=== PATIENT | male | born 1985 | race American Indian/Alaskan Native ===

== ENCOUNTER 2017-04-19 14:24 | Emergency (ER) | payer OTHER ==
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
[2017-04-19 15:33] LABS: URINE BILIRUBIN NEGATIVE (NEGATIVE); URINE BLOOD TRACE-INTACT (NEGATIVE); URINE GLUCOSE (UA) NEGATIVE (NEGATIVE); URINE KETONE NEGATIVE (NEGATIVE); URINE LEUKOCYTE ESTERASE NEGATIVE Leu/uL (NEGATIVE); URINE PROTEIN NEGATIVE mg/dL (<30 mg/dL); URINE UROBILINOGEN 0.2 E.U./dL (<1 E.U./dL)
[2017-04-19 15:34] LABS: URINE APPEARANCE CLEAR (CLEAR); URINE COLOR YELLOW (YELLOW)
--- NOTE | 2017-04-19 15:37 | RAD ---
HISTORY: psych COMPARISON: 01/11/2016 FINDINGS: LUNGS: No active pulmonary disease. PLEURA: No significant pleural effusion identified, no pneumothorax apparent. CARDIOVASCULAR: Normal. OSSEOUS STRUCTURES: No significant abnormalities. VISUALIZED UPPER ABDOMEN: Normal. OTHER FINDINGS: None. IMPRESSION: No active disease.
[2017-04-19 15:43] LABS: ADD MANUAL DIFF? NO
[2017-04-19 15:48] LABS: BASO # 0.03 K/mm3 (0.0-2.0); BASO % 0.3 % (0.0-3.0); EOS # 0.2 (0.0-0.7); EOS % 1.9 % (1.5-5.0); GRAN # 6.99 (1.4-6.5); GRAN % 67.2 % (50.0-68.0); HEMATOCRIT 40.3 % (42.0-52.0); LYMPH # 2.6 (1.2-3.4); LYMPH % 25.3 % (22.0-35.0); MEAN CORPUSCULAR HEMOGLOBIN 28.5 pg (25.0-35.0); MEAN PLATELET VOLUME 10.3 fl (7.0-11.0); MONO # 0.6 (0.1-0.6); MONO % 5.3 % (1.0-6.0); PLATELET COUNT 191 10^3/uL (120.0-450.0); RED CELL DISTRIBUTION WIDTH 14.8 % (11.5-14.5); WHITE BLOOD COUNT 10.4 10^3/ul (4.5-11.0)
[2017-04-19 15:51] LABS: URINE RBC 0 - 2 /hpf (0-2); URINE WBC NEGATIVE /hpf (0-6)
[2017-04-19 15:57] LABS: ALB/GLOB RATIO 1.5 (1.1-1.8); ALKALINE PHOSPHATASE 114 U/L (38-133); ALT/SGPT 40 U/L (7-56); AST/SGOT 24 U/L (15-59); BILIRUBIN,TOTAL 0.3 mg/dL (0.2-1.3); BLOOD UREA NITROGEN 16 mg/dL (7-21); CARBON DIOXIDE 24 mmol/L (21-33); CHLORIDE 105 mmol/L (98-107); GFR AFRICAN-AMERICAN > 60; GLUCOSE,RANDOM 102 mg/dL (70-110); LIPASE 50 U/L (23-300); POTASSIUM 3.9 mmol/L (3.6-5.0); SODIUM 140 mmol/L (132-148)
[2017-04-19 19:09] VITALS: TEMP 98
[2017-04-19 19:10] VITALS: O2SAT 98
[2017-04-19 22:12] VITALS: BP 120/82; PULSE 82; RESP 16
--- NOTE | 2017-04-21 01:26 | CARD ---
APPROVED REPORT EKG Measurement Heart [id number] <Conclusion> Normal sinus rhythm Normal ECG
== END 2017-04-19 22:12 | disposition home or self-care (01) ==
LOC: ED 14:24
DX: F20.9 Schizophrenia, unspecified (principal)

== ENCOUNTER 2017-06-06 19:12 | Inpatient (IN) | payer MEDICAID, OTHER ==
[2017-06-06 20:03] VITALS: BMI 25.0
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
[2017-06-06 20:55] LABS: URINE BILIRUBIN NEGATIVE (NEGATIVE); URINE BLOOD TRACE-INTACT (NEGATIVE); URINE GLUCOSE (UA) NEGATIVE (NEGATIVE); URINE LEUKOCYTE ESTERASE NEGATIVE Leu/uL (NEGATIVE); URINE NITRATE NEGATIVE (NEGATIVE); URINE PROTEIN NEGATIVE mg/dL (<30 mg/dL); URINE UROBILINOGEN 0.2 E.U./dL (<1 E.U./dL)
[2017-06-06 21:00] LABS: URINE APPEARANCE CLEAR (CLEAR); URINE COLOR YELLOW (YELLOW)
[2017-06-06 21:01] LABS: ALB/GLOB RATIO 1.6 (1.1-1.8); ALBUMIN 4.4 g/dL (3.0-4.8); ALT/SGPT 36 U/L (7-56); AST/SGOT 34 U/L (15-59); BLOOD UREA NITROGEN 11 mg/dL (7-21); CALCIUM 9.3 mg/dL (8.4-10.5); GFR AFRICAN-AMERICAN > 60; GFR NON-AFRICAN AMERICAN > 60
[2017-06-06 21:02] LABS: BASO # 0.03 K/mm3 (0.0-2.0); BASO % 0.3 % (0.0-3.0); EOS # 0.5 (0.0-0.7); GRAN # 6.59 (1.4-6.5); GRAN % 57.9 % (50.0-68.0); HEMOGLOBIN 15.2 g/dL (14.0-18.0); LYMPH # 3.8 (1.2-3.4); LYMPH % 33.1 % (22.0-35.0); MEAN CELL VOLUME 83.3 fl (80.0-105.0); MEAN CORPUSCULAR HEMOGLOBIN 29.1 pg (25.0-35.0); MEAN CORPUSCULAR HGB CONC 34.9 g/dl (31.0-37.0); MEAN PLATELET VOLUME 10.6 fl (7.0-11.0); MONO # 0.5 (0.1-0.6); MONO % 4.7 % (1.0-6.0); PLATELET COUNT 200 10^3/uL (120.0-450.0); RBC 5.22 10^6/uL (3.5-6.1); RED CELL DISTRIBUTION WIDTH 14.2 % (11.5-14.5); WHITE BLOOD COUNT 11.4 10^3/ul (4.5-11.0)
[2017-06-06 21:04] LABS: ACETAMINOPHEN < 10.0 ug/ml (10.0-20.0); SALICYLATE < 1 mg/dL (2.0-20.0)
[2017-06-06 21:05] LABS: URINE EPITHELIAL CELLS 0 - 2 /hpf (0-5); URINE WBC 0 - 2 /hpf (0-6)
[2017-06-06 21:13] LABS: BARBITURATES, UR NEGATIVE (NEGATIVE); BENZODIAZEPINES, UR NEGATIVE (NEGATIVE); OPIATES, UR NEGATIVE (NEGATIVE); PHENCYCLIDINE, UR NEGATIVE (NEGATIVE)
[2017-06-06 21:38] VITALS: O2SAT 98
--- NOTE | 2017-06-07 04:15 | PCM.BM ---
<Arnold Barger O - Last Filed: 06/07/17 04:12> Treatment Plan Problems - Problems identified on initial assessmt delusional Date Initiated: 06/06/17 Time Initiated: 20:35 Assessment reference: NA Status: Active substance abuse Date Initiated: 06/06/17 Time Initiated: 20:35 Assessment reference: NA Status: Active Treatment assets and liabiliti Patient Assests: ADL independent, physically healthy Patient Liabilities: substance abuse - Milieu Protocol Maintain good personal hygiene: daily Encourage regular showers, daily Remind patient to perform daily oral care, daily Assist patient to perform ADL's Maintain personal safety: daily Educate patient to report safety concerns to staff, daily Monitor environment for contraband/sharps Medication safety: Monitor for expected outcome, potential side effects: daily, Assess barriers to learning: daily, Assess readiness for medication education: daily Family Contact Family involvement: Patient does not wish Family/SO involvement Family contact: Patient agrees to contact - Goals for Treatment Patient goals for treatment: To get better Discharge/Continuing Care - Education Needs Education Needs: Family Medication, Family Diagnosis/Disease Process, Family Coping Skills, Family Anger Management skills, Family Placement options, Family Community resources, Family Activities of Daily Living, Family Pain, Family Nutrition, Family Uses of Medical Equipment, Family Health Practices/Safety, Family Personal Hygiene/Grooming, Family Aftercare Safety Plan, Family Other - Discharge Discharge Criteria: Tolerates medication w/o severe side effects, Free of Suicidal thoughts, Free of paranoid thoughts, Normal sleep pattern <Jose A Sotelo H - Last Filed: 06/09/17 11:23> - Diagnosis (1) Schizophrenia Status: Acute Interventions: Pharmocotherapy 06/09/17 11:32 <Christiane Amni Y - Last Filed: 06/09/17 17:21>
[2017-06-07 08:53] LABS: HDL CHOLESTEROL 36 mg/dL (29-60)
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
[2017-06-07 09:04] LABS: LDL CHOLESTEROL 89 mg/dL (0-129)
--- NOTE | 2017-06-07 10:19 | RAD ---
HISTORY: pysch COMPARISON: 04/19/2017. FINDINGS: LUNGS: No active pulmonary disease. PLEURA: No significant pleural effusion identified, no pneumothorax apparent. CARDIOVASCULAR: Normal. OSSEOUS STRUCTURES: No significant abnormalities. VISUALIZED UPPER ABDOMEN: Normal. OTHER FINDINGS: None. IMPRESSION: No active disease. No significant interval change compared to the prior examination(s).
--- NOTE | 2017-06-07 18:54 | CARD ---
APPROVED REPORT EKG Measurement Heart [id number] <Conclusion> Normal sinus rhythm Normal ECG
[2017-06-07] MEDS: Divalproex 500 mg DR(BID formulation) PO SCH ×2 (19:22→19:55)
[2017-06-08 08:09] VITALS: RESP 20
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
[2017-06-08] MEDS: Divalproex 500 mg DR(BID formulation) PO SCH ×2 (09:56→16:00)
[2017-06-09] MEDS: Divalproex 500 mg DR(BID formulation) PO SCH ×2 (09:07→17:49)
--- NOTE | 2017-06-09 14:13 | PCM.PYCHPN ---
Psychiatric Progress Note - Psychiatric Progress Note Patient seen today, length of contact: 25 min Problems Identified/Issues Discussed: Patient has been seen and examined. He is oriented to time place, location, and circumstance. He denies any suicidal or homicidal ideation. Patient stated he doesn't know why he passed out. He denied any using any illicit drugs. Diagnostic Results: Schizophrenia by Hx Medication Change: No Medical Record Reviewed: Yes Mental Status Examination - Cognitive Function Orientation: Person, Place Memory: Intact Attention: WNL Concentration: Poor Association: Loose Fund of Knowledge: Poor Decription of patient's judgement and insights: Poor insight and judgement. - Mood Mood: Neutral ("all right") - Affect Affect: Other (Oddly related, brittle) - Speech Speech: Appropriate - Formal Thought Process Formal Thought Process: Paranoia - Suicidal Ideation Suicidal Ideation: No - Homicidal Ideation Homicidal Ideation: No Goal/Treatment Plan - Goal/Treatment Plan Need for Continued Stay: Remain at risks for inpatient hospitalization Progress Toward Problem(s) and Goals/Treatment Plan: Continue with current management.
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
[2017-06-10] MEDS: Divalproex 500 mg DR(BID formulation) PO SCH ×2 (08:50→17:45)
[2017-06-10] MEDS ORDERED: Bacitracin/Neomycin/Polymyxin Oint(30GM) TOP PRN (15:32)
[2017-06-11 06:30] VITALS: BP 112/70; PULSE 87; TEMP 97.6
--- NOTE | 2017-06-11 07:51 | OP ---
Covering for Dr. Fernandez. SUBJECTIVE: The patient is a 32-year-old -[place] male who exhibits some mood lability, some impaired judgement. He denies suicidal or homicidal ideation. Auditory or visual hallucinations. He has been maintained psychotropically on Ativan 1 mg t.i.d., Depakote 500 mg b.i.d., Risperdal 2 mg a.m. and at bedtime, and Sonata 10 mg at bedtime p.r.n. PHYSICAL EXAMINATION: VITAL SIGNS: Blood pressure 130/73, pulse 97, temperature 98.4 and respiratory rate 20. Jose A Sotelo MD/ PhD
[2017-06-11] MEDS: Divalproex 500 mg DR(BID formulation) PO SCH ×2 (09:02→17:34)
[2017-06-11] MEDS ORDERED: INVEGA SUSTENNA 156 MG IM STA (17:29)
--- NOTE | 2017-06-12 07:51 | PN ---
SUBJECTIVE: The patient is a 32-year-old male with a somewhat odd affect, mood lability, lack of insight. The patient has been anxious to leave. He stated initial agitation has subsided. His mother indicates that she has no concerns about he is being discharged, feels he has improved and would be willing to send them back home if he receives a long acting injectable antipsychotic medication. The patient is not homicidal, suicidal or psychotic. Jose A Sotelo MD/ PhD
== END 2017-06-11 16:30 | disposition home or self-care (01) | DRG 430 ==
LOC: ED 19:12 → ERH 06-07 00:12 → PSYC 06-07 00:53
PROVIDERS: ADMIT Psychologist; ATTEND Psychiatry & Neurology Psychiatry
DX: F20.9 Schizophrenia, unspecified (principal); F17.210 Nicotine dependence, cigarettes, uncomplicated; Z87.828 Personal history of other (healed) physical injury and trauma

== ENCOUNTER 2017-06-12 16:00 | Emergency (ER) | payer MEDICAID, OTHER ==
[2017-06-12 16:11] VITALS: TEMP 99
[2017-06-12 16:27] VITALS: BMI 24.3
[2017-06-12 17:49] LABS: BASO # 0.01 K/mm3 (0.0-2.0); BASO % 0.1 % (0.0-3.0); EOS # 0.1 (0.0-0.7); EOS % 0.7 % (1.5-5.0); GRAN # 8.32 (1.4-6.5); GRAN % 72.6 % (50.0-68.0); HEMOGLOBIN 15.9 g/dL (14.0-18.0); LYMPH # 2.1 (1.2-3.4); LYMPH % 18.2 % (22.0-35.0); MEAN CELL VOLUME 84.4 fl (80.0-105.0); MEAN CORPUSCULAR HEMOGLOBIN 28.6 pg (25.0-35.0); MEAN CORPUSCULAR HGB CONC 33.9 g/dl (31.0-37.0); MEAN PLATELET VOLUME 10.8 fl (7.0-11.0); MONO % 8.4 % (1.0-6.0); PLATELET COUNT 165 10^3/uL (120.0-450.0); RBC 5.56 10^6/uL (3.5-6.1); RED CELL DISTRIBUTION WIDTH 14.7 % (11.5-14.5); WHITE BLOOD COUNT 11.5 10^3/ul (4.5-11.0)
[2017-06-12 17:57] LABS: ALB/GLOB RATIO 1.6 (1.1-1.8); ALBUMIN 4.9 g/dL (3.0-4.8); ALT/SGPT 43 U/L (7-56); AST/SGOT 33 U/L (15-59); BLOOD UREA NITROGEN 8 mg/dL (7-21); CALCIUM 9.8 mg/dL (8.4-10.5); GFR AFRICAN-AMERICAN > 60; GFR NON-AFRICAN AMERICAN > 60
[2017-06-12 17:58] LABS: SALICYLATE < 1 mg/dL (2.0-20.0)
[2017-06-12 18:02] LABS: ACETAMINOPHEN < 10.0 ug/ml (10.0-20.0)
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
--- NOTE | 2017-06-12 19:27 | ED PDOC ---
Physical Exam Vital Signs Temp Pulse Resp BP Pulse Ox 06/12/17 18:00 101 H 18 126/97 H 99 06/12/17 16:10 99 F 100 H 20 128/83 97 Medical Decision Making ED Course and Treatment: 06/12/17 19:00 Patient signed out to me by Dr. Pacheco. Pending [facility] screening. 06/12/17 22:15 Pt seen and evaluated by TANIA Vazquez, who discussed case with Dr. Zuñiga, psychiatrist quality control engineering technician. Pt was cleared for d/c home in custody of his mother, who agrees with plan and will assume responsibility of pt, who will follow up with his psychiatrist this week. - Lab Interpretations Lab Results: 06/12/17 17:06 06/12/17 17:06 Lab Results 06/12/17 21:31: Urine Color Yellow, Urine Appearance Clear, Urine pH 6.0, Ur Specific [place] 1.015, Urine Protein Negative, Urine Glucose (UA) Negative, Urine Ketones Negative, Urine Blood Trace-lysed H, Urine Nitrate Negative, Urine Bilirubin Negative, Urine Urobilinogen 0.2, Ur Leukocyte Esterase Negative , Urine RBC 0 - 2, Urine WBC 1 - 3, Ur Epithelial Cells None, Urine Bacteria Many, Urine Other Mucus 06/12/17 17:06: Alcohol, Quantitative 13 H 06/12/17 17:06: Salicylates < 1 L, Acetaminophen < 10.0 L 06/12/17 17:06: Sodium 141, Potassium 3.9, Chloride 99, Carbon Dioxide 25, Anion Gap 21 H, BUN 8, Creatinine 1.0, Est GFR ( Amer) > 60, Est GFR (Non -Af Amer) > 60, Random Glucose 97, Calcium 9.8, Total Bilirubin 0.4, AST 33, ALT 43, Alkaline Phosphatase 127, Total Protein 7.9, Albumin 4.9 H, Globulin 3.0 , Albumin/Globulin Ratio 1.6 06/12/17 17:06: WBC 11.5 H, RBC 5.56, Hgb 15.9, Hct 46.9, MCV 84.4, MCH 28.6, MCHC 33.9, RDW 14.7 H, Plt Count 165, MPV 10.8, Gran % 72.6 H, Lymph % (Auto) 18.2 L, [place] % (Auto) 8.4 H, Eos % (Auto) 0.7 L, Baso % (Auto) 0.1, Gran # 8.32 H, Lymph # 2.1, [place] # 1.0 H, Eos # 0.1, Baso # 0.01 - Scribe Statement The provider has reviewed the documentation as recorded by the Scribe Leidy Garcia Provider Scribe Attestation: All medical record entries made by the Scribe were at my direction and personally dictated by me. I have reviewed the chart and agree that the record accurately reflects my personal performance of the history, physical exam, medical decision making, and the department course for this patient. I have also personally directed, reviewed, and agree with the discharge instructions and disposition. Disposition/Present on Arrival - Present on Arrival Any Indicators Present on Arrival: No History of DVT/PE: No History of Uncontrolled Diabetes: No Urinary Catheter: No History of Decub. Ulcer: No History Surgical Site Infection Following: None - Disposition Have Diagnosis and Disposition been Completed?: Yes Diagnosis: Schizophrenia Disposition: HOME/ ROUTINE Disposition Time: 22:32 Patient Plan: Discharge Condition: STABLE Additional Instructions: Follow up with your psychiatrist this week Forms: [employer] (Tajik)
[2017-06-12 19:32] VITALS: BP 126/97; PULSE 101; RESP 18; O2SAT 99
[2017-06-12 21:54] LABS: URINE BILIRUBIN NEGATIVE (NEGATIVE); URINE BLOOD TRACE-LYSED (NEGATIVE); URINE GLUCOSE (UA) NEGATIVE (NEGATIVE); URINE LEUKOCYTE ESTERASE NEGATIVE Leu/uL (NEGATIVE); URINE NITRATE NEGATIVE (NEGATIVE); URINE PROTEIN NEGATIVE mg/dL (<30 mg/dL); URINE UROBILINOGEN 0.2 E.U./dL (<1 E.U./dL)
[2017-06-12 22:05] LABS: URINE APPEARANCE CLEAR (CLEAR); URINE COLOR YELLOW (YELLOW)
[2017-06-12 22:08] LABS: BARBITURATES, UR NEGATIVE (NEGATIVE); BENZODIAZEPINES, UR NEGATIVE (NEGATIVE); OPIATES, UR NEGATIVE (NEGATIVE); PHENCYCLIDINE, UR NEGATIVE (NEGATIVE); URINE RBC 0 - 2 /hpf (0-2)
[2017-06-12 22:09] LABS: URINE BACTERIA MANY (NEG)
== END 2017-06-12 22:30 | disposition home or self-care (01) ==
LOC: ED 16:00
DX: F20.9 Schizophrenia, unspecified (principal)

== ENCOUNTER 2018-04-05 23:44 | Inpatient (IN) | payer MEDICAID, OTHER ==
[2018-04-05 23:45] VITALS: BMI 25.0
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
[2018-04-06 00:47] LABS: BASO # 0.02 K/mm3 (0.0-2.0); BASO % 0.2 % (0.0-3.0); EOS # 0.1 (0.0-0.7); EOS % 0.6 % (1.5-5.0); GRAN # 9.39 (1.4-6.5); GRAN % 78.8 % (50.0-68.0); HEMOGLOBIN 14.6 g/dL (14.0-18.0); LYMPH # 1.8 (1.2-3.4); MEAN CELL VOLUME 84.4 fl (80.0-105.0); MEAN CORPUSCULAR HEMOGLOBIN 29.1 pg (25.0-35.0); MEAN CORPUSCULAR HGB CONC 34.5 g/dl (31.0-37.0); MEAN PLATELET VOLUME 10.5 fl (7.0-11.0); MONO # 0.6 (0.1-0.6); MONO % 5.4 % (1.0-6.0); RBC 5.01 10^6/uL (3.5-6.1); WHITE BLOOD COUNT 11.9 10^3/ul (4.5-11.0)
[2018-04-06 01:04] LABS: ALB/GLOB RATIO 1.5 (1.1-1.8); ALBUMIN 4.3 g/dL (3.0-4.8); ALT/SGPT 39 U/L (7-56); AST/SGOT 39 U/L (17-59); BLOOD UREA NITROGEN 17 mg/dL (7-21); CALCIUM 9.5 mg/dL (8.4-10.5); GFR AFRICAN-AMERICAN > 60; GFR NON-AFRICAN AMERICAN > 60
[2018-04-06 01:39] LABS: ACETAMINOPHEN < 10.0 ug/ml (10.0-20.0); SALICYLATE < 1 mg/dL (2.0-20.0)
[2018-04-06 02:08] LABS: URINE BILIRUBIN NEGATIVE (NEGATIVE); URINE BLOOD NEGATIVE (NEGATIVE); URINE GLUCOSE (UA) NEGATIVE (NEGATIVE); URINE LEUKOCYTE ESTERASE NEGATIVE Leu/uL (NEGATIVE); URINE PROTEIN NEGATIVE mg/dL (<30 mg/dL); URINE UROBILINOGEN 0.2 E.U./dL (<1 E.U./dL)
[2018-04-06 02:13] LABS: URINE APPEARANCE CLEAR (CLEAR); URINE COLOR YELLOW (YELLOW)
[2018-04-06 02:31] LABS: BARBITURATES, UR NEGATIVE (NEGATIVE); BENZODIAZEPINES, UR NEGATIVE (NEGATIVE); OPIATES, UR NEGATIVE (NEGATIVE); PHENCYCLIDINE, UR POSITIVE (NEGATIVE)
[2018-04-06] MEDS ORDERED: Alum-Mag Hydrox-Simethicone Susp (30 mL) PO PRN (02:56)
[2018-04-06] MEDS ORDERED: Magnesium Hydroxide Susp 30 ml UD PO PRN (02:56)
[2018-04-06 03:30] VITALS: O2SAT 99
--- NOTE | 2018-04-06 04:58 | PCM.BM ---
Treatment assets and liabiliti Patient Assests: ADL independent, physically healthy
--- NOTE | 2018-04-06 05:08 | PCM.BM ---
<Neda Contreras - Last Filed: 04/06/18 05:07> Treatment Plan Problems - Problems identified on initial assessmt DELUSIONS Date Initiated: 04/06/18 Time Initiated: 05:00 Status: Active Priority: 1 MEDICATION NON ADHERENCE Date Initiated: 04/06/18 Time Initiated: 05:00 Assessment reference: NA Status: Active Priority: 2 INEFFECTIVE COPING Date Initiated: 04/06/18 Time Initiated: 05:00 Assessment reference: NA Status: Active Priority: 3 Treatment assets and liabiliti Patient Assests: cooperative, self-reliant, ADL independent, physically healthy , negotiates basic needs Patient Liabilities: financial problems, relationship conflicts, substance abuse - Milieu Protocol Maintain good personal hygiene: every other day Encourage regular showers, every shift Remind patient to perform daily oral care, every shift Assist patient to perform ADL's Maintain personal safety: every other day Educate patient to report safety concerns to staff, every other day Monitor environment for contraband/sharps Medication safety: Monitor for expected outcome, potential side effects: every other day, Assess barriers to learning: every other day, Assess readiness for medication education: every other day Family Contact Family contact: Patient agrees to contact Discharge/Continuing Care - Education Needs Education Needs: Patient Medication, Patient Diagnosis/Disease Process, Patient Coping Skills, Patient Uses of Medical Equipment, Patient Health Practices/ Safety, Patient Aftercare Safety Plan - Discharge Discharge Criteria: Tolerates medication w/o severe side effects, Free of paranoid thoughts, Free of agitation, Normal sleep pattern, Ability to care for self <Javy Uribe - Last Filed: 04/06/18 10:07> Treatment Plan Problems - Problems identified on initial assessmt Altered Thought Process Date Initiated: 04/06/18 Time Initiated: 10:08 Assessment reference: NA Status: Active Priority: 2 <Jessica Fernandez - Last Filed: 04/06/18 16:12> - Diagnosis (1) Polysubstance abuse Status: Acute Interventions: 04/06/18 08:46 Monitoring withdrawal symptoms Medical detoxification Pharmacotherapy for alcohol/benzos/opioid dependence Maintaining sobriety Relapse prevention Possible rehabilitation Motivational interviewing 12-step programs: AA meetings (2) Schizophrenia Status: Acute Interventions: 04/06/18 08:46 Psychoeducation/psychotherapy Psychopharmacology/adjustment of medications as needed/ monitoring possible side effects Evaluate pt on daily basis Compliance with medications and follow up appointments Long acting medication if pt is noncompliant with pill form Suicide and homicide risk assessment and prevention, coping strategies, safety plan Relapse prevention Reduction of symptoms Improve functional status Possible assertive community treatment Cognitive behavioral therapy Family involvement Possible social skill training as outpatient <Christiane Amin - Last Filed: 04/06/18 17:14> Family Contact Family involvement: Famliy/SO not involved Family contact: Patient declines to allow family contact at present
[2018-04-06 06:49] LABS: GLUCOSE,FASTING 93 mg/dL (65-110); HDL CHOLESTEROL 34 mg/dL (29-60)
[2018-04-06 06:59] LABS: LDL CHOLESTEROL 79 mg/dL (0-129)
[2018-04-06] MEDS ORDERED: Bacitracin 500 Units/gm Oint Foilpak UD ONE (10:33)
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
[2018-04-07 07:01] VITALS: BP 100/64; PULSE 59; RESP 20; TEMP 97.5
== END 2018-04-07 15:52 | disposition left against medical advice (07) | DRG 430 ==
LOC: ED 23:44 → ERH 04-06 01:58 → PSYC 04-06 03:17
PROVIDERS: ADMIT Psychiatry & Neurology Psychiatry; ATTEND Psychiatry & Neurology Psychiatry
DX: F20.9 Schizophrenia, unspecified (principal); F16.10 Hallucinogen abuse, uncomplicated; F12.10 Cannabis abuse, uncomplicated

== ENCOUNTER 2018-08-22 18:18 | Emergency (ER) | payer MEDICAID, OTHER ==
[2018-08-22 18:19] VITALS: BMI 25.0
[2018-08-22 18:42] VITALS: RESP 18; TEMP 98.1
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
[2018-08-22 19:06] LABS: BASO # 0.06 K/mm3 (0.0-2.0); BASO % 0.4 % (0.0-3.0); EOS # 0.3 (0.0-0.7); EOS % 2.2 % (1.5-5.0); GRAN # 8.49 (1.4-6.5); HEMOGLOBIN 15.3 g/dL (14.0-18.0); LYMPH # 4.1 (1.2-3.4); LYMPH % 29.5 % (22.0-35.0); MEAN CELL VOLUME 85.7 fl (80.0-105.0); MEAN CORPUSCULAR HEMOGLOBIN 29.3 pg (25.0-35.0); MEAN CORPUSCULAR HGB CONC 34.2 g/dl (31.0-37.0); MEAN PLATELET VOLUME 10.9 fl (7.0-11.0); MONO # 0.8 (0.1-0.6); MONO % 5.9 % (1.0-6.0); RBC 5.23 10^6/uL (3.5-6.1); RED CELL DISTRIBUTION WIDTH 13.8 % (11.5-14.5); WHITE BLOOD COUNT 13.7 10^3/uL (4.5-11.0)
[2018-08-22 19:25] LABS: ACETAMINOPHEN < 10.0 ug/ml (10.0-20.0); SALICYLATE < 1 mg/dL (2.0-20.0)
[2018-08-22 19:25] LABS: ALB/GLOB RATIO 1.3 (1.1-1.8); ALBUMIN 4.4 g/dL (3.0-4.8); ALT/SGPT 32 U/L (7-56); AST/SGOT 27 U/L (17-59); BLOOD UREA NITROGEN 14 mg/dL (7-21); CALCIUM 9.5 mg/dL (8.4-10.5); GFR NON-AFRICAN AMERICAN > 60
[2018-08-22 19:31] LABS: URINE APPEARANCE CLEAR (CLEAR); URINE BILIRUBIN NEGATIVE (NEGATIVE); URINE BLOOD TRACE-INTACT (NEGATIVE); URINE COLOR YELLOW (YELLOW); URINE GLUCOSE (UA) NEGATIVE (NEGATIVE); URINE LEUKOCYTE ESTERASE NEGATIVE Leu/uL (NEGATIVE); URINE PROTEIN NEGATIVE mg/dL (<30 mg/dL); URINE UROBILINOGEN 0.2 E.U./dL (<1 E.U./dL)
[2018-08-22 19:35] LABS: URINE BACTERIA NEG (NEG); URINE HYALINE CAST 0 - 2 /hpf; URINE WBC 0 - 2 /hpf (0-6)
[2018-08-22 19:50] LABS: BARBITURATES, UR NEGATIVE (NEGATIVE); BENZODIAZEPINES, UR NEGATIVE (NEGATIVE); OPIATES, UR NEGATIVE (NEGATIVE); PHENCYCLIDINE, UR POSITIVE (NEGATIVE)
[2018-08-22 21:04] VITALS: BP 112/71; PULSE 76; O2SAT 100
--- NOTE | 2018-08-23 10:04 | RAD ---
Date of service: 08/22/2018 HISTORY: drug use COMPARISON: 06/06/2017. FINDINGS: LUNGS: The lungs are well inflated and clear. PLEURA: No pleural effusions or pneumothorax. CARDIOVASCULAR: The heart is normal in size. No aortic atherosclerotic calcification present. OSSEOUS STRUCTURES: Within normal limits for the patient's age. VISUALIZED UPPER ABDOMEN: Normal. OTHER FINDINGS: None. IMPRESSION: No active pulmonary disease.
--- NOTE | 2018-08-24 09:54 | CARD ---
APPROVED REPORT Date of service: 08/22/2018 EKG Measurement Heart [id number] <Conclusion> Normal sinus rhythm Normal ECG No change
== END 2018-08-22 20:47 | disposition left against medical advice (07) ==
LOC: ED 18:18
DX: F19.10 Other psychoactive substance abuse, uncomplicated (principal); F20.9 Schizophrenia, unspecified

== ENCOUNTER 2018-08-23 16:27 | Inpatient (IN) | payer OTHER ==
[2018-08-23 16:28] VITALS: BMI 25.0
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
[2018-08-23 16:55] LABS: BASO # 0.04 K/mm3 (0.0-2.0); BASO % 0.3 % (0.0-3.0); EOS # 0.3 (0.0-0.7); EOS % 1.6 % (1.5-5.0); GRAN # 11.49 (1.4-6.5); GRAN % 72.1 % (50.0-68.0); HEMOGLOBIN 16.1 g/dL (14.0-18.0); LYMPH # 3.3 (1.2-3.4); LYMPH % 20.8 % (22.0-35.0); MEAN CELL VOLUME 86.1 fl (80.0-105.0); MEAN CORPUSCULAR HEMOGLOBIN 29.4 pg (25.0-35.0); MEAN CORPUSCULAR HGB CONC 34.2 g/dl (31.0-37.0); MEAN PLATELET VOLUME 10.6 fl (7.0-11.0); MONO # 0.8 (0.1-0.6); MONO % 5.2 % (1.0-6.0); RBC 5.47 10^6/uL (3.5-6.1); RED CELL DISTRIBUTION WIDTH 13.8 % (11.5-14.5); WHITE BLOOD COUNT 15.9 10^3/uL (4.5-11.0)
[2018-08-23 17:12] LABS: ALB/GLOB RATIO 1.5 (1.1-1.8); ALBUMIN 5.1 g/dL (3.0-4.8); ALT/SGPT 27 U/L (7-56); AST/SGOT 34 U/L (17-59); BLOOD UREA NITROGEN 15 mg/dL (7-21); CALCIUM 9.9 mg/dL (8.4-10.5); GFR NON-AFRICAN AMERICAN > 60
[2018-08-23] MEDS ORDERED: Sodium Chloride 0.9% 1,000 ML IV STA (17:16)
[2018-08-23] MEDS ORDERED: Sodium Chloride 0.9% 500 ML IV STA (17:17)
[2018-08-23 18:45] LABS: PH,URINE 6.5 (4.7-8.0); URINE BILIRUBIN NEGATIVE (NEGATIVE); URINE BLOOD NEGATIVE (NEGATIVE); URINE GLUCOSE (UA) NEGATIVE (NEGATIVE); URINE LEUKOCYTE ESTERASE NEGATIVE Leu/uL (NEGATIVE); URINE PROTEIN TRACE mg/dL (<30 mg/dL); URINE UROBILINOGEN 0.2 E.U./dL (<1 E.U./dL)
[2018-08-23 18:46] LABS: URINE APPEARANCE CLEAR (CLEAR); URINE COLOR YELLOW (YELLOW)
[2018-08-23 18:55] LABS: URINE RBC NEGATIVE /hpf (0-2)
[2018-08-23 18:56] LABS: URINE BACTERIA FEW (NEG)
[2018-08-23 18:57] LABS: BARBITURATES, UR NEGATIVE (NEGATIVE); BENZODIAZEPINES, UR NEGATIVE (NEGATIVE)
[2018-08-23 19:02] LABS: OPIATES, UR NEGATIVE (NEGATIVE); PHENCYCLIDINE, UR POSITIVE (NEGATIVE)
[2018-08-23 19:59] LABS: BASO # 0.02 K/mm3 (0.0-2.0); BASO % 0.1 % (0.0-3.0); EOS # 0.1 (0.0-0.7); EOS % 0.5 % (1.5-5.0); GRAN # 12.6 (1.4-6.5); GRAN % 78.9 % (50.0-68.0); HEMOGLOBIN 15.4 g/dL (14.0-18.0); LYMPH # 2.2 (1.2-3.4); MEAN CELL VOLUME 88.9 fl (80.0-105.0); MEAN CORPUSCULAR HEMOGLOBIN 29.4 pg (25.0-35.0); MEAN CORPUSCULAR HGB CONC 33.1 g/dl (31.0-37.0); MEAN PLATELET VOLUME 10.6 fl (7.0-11.0); MONO % 6.5 % (1.0-6.0); RBC 5.23 10^6/uL (3.5-6.1)
--- NOTE | 2018-08-23 21:40 | ED PDOC ---
Physical Exam Vital Signs Reviewed: Yes Vital Signs Temp Pulse Resp BP Pulse Ox 08/23/18 18:29 79 18 114/62 100 08/23/18 16:39 98 F 100 H 19 134/50 L 96 Temperature: Afebrile Blood Pressure: Normal Pulse: Regular Respiratory Rate: Normal Appearance: Positive for: Well-Appearing, Non-Toxic, Comfortable Pain Distress: None Mental Status: Positive for: Alert and Oriented X 3 - Systems Exam Head: Present: Atraumatic, Normocephalic Pupils: Present: PERRL Extroacular Muscles: Present: EOMI Conjunctiva: Present: Normal Mouth: Present: Moist Mucous Membranes Neck: Present: Normal Range of Motion Respiratory/Chest: Present: Clear to Auscultation, Good Air Exchange. No: Respiratory Distress, Accessory Muscle Use Cardiovascular: Present: Regular Rate and Rhythm, Normal S1, S2. No: Murmurs Abdomen: Present: Normal Bowel Sounds. No: Tenderness, Distention, Peritoneal Signs Upper Extremity: Present: Normal Inspection, Normal ROM, NORMAL PULSES. No: Cyanosis, Edema Lower Extremity: Present: Normal Inspection, NORMAL PULSES, Normal ROM. No: Edema Neurological: Present: GCS=15, CN II-XII Intact, Speech Normal Skin: Present: Warm, Dry, Normal Color. No: Rashes Lymphatic: No: Cervical Adenopathy Psychiatric: Present: Alert, Oriented x 3, Normal Insight, Normal Concentration Medical Decision Making ED Course and Treatment: 08/23/18 20:00 Pt endorsed to me by ROME Sanders; pending repeat CBC and PES evaluation. On repeat CBC, pt's WBC has increased to 16.0 from 15.9 08/23/18 21:38 Pt awaiting PES evaluation. A&O x 3, no physical complaints, pt calm and polite. Physical exam normal. 08/23/18 23:00 PES (Demetrice) evaluated pt and spoke to mother. Mother is stating that pt was found unresponsive and "foaming at the mouth" this afternoon and that is why he was brought to the hospital. This is new information. Will CT head. Pt is willing to sign in to the psychiatric floor voluntarily. However, no beds are available. Will attempt transfer to [facility] 08/23/18 01:30 [facility] psychiatrist unwilling to accept pt due to questionable seizure this afternoon. Will attempt to admit pt to medicine with psychiatric consult. CT head negative for intracranial pathology but is significant for ethmoid sinusitis. This may be the source of the pt's upward trending WBC. Will admit pt for repeat CBC and treatment of sinusitis, along with psychiatric consult. 08/24/18 02:10 Dr. Reeder accepted pt for inpatient admission to [facility] for leukocytosis, sinusitis, schizophrenia, substance abuse. Psychiatry will see pt as a consult to establish psychiatric followup. Dr. Reeder recommends blood culture, CXR, IV antibiotics. Pt is agreeable to plan and understands reasoning for admission. - Lab Interpretations Lab Results: 08/23/18 19:30 08/23/18 16:44 Lab Results 08/23/18 19:30: WBC 16.0 H, RBC 5.23, Hgb 15.4, Hct 46.5, MCV 88.9, MCH 29.4, MC HC 33.1, RDW 14.0, Plt Count 167, MPV 10.6, Gran % 78.9 H, Lymph % (Auto) 14.0 L , [place] % (Auto) 6.5 H, Eos % (Auto) 0.5 L, Baso % (Auto) 0.1, Gran # 12.60 H, Lymph # (Auto) 2.2, [place] # (Auto) 1.0 H, Eos # (Auto) 0.1, Baso # (Auto) 0.02 08/23/18 18:30: Urine Color Yellow, Urine Appearance Clear, Urine pH 6.5, Ur Specific [place] 1.020, Urine Protein Trace H, Urine Glucose (UA) Negative, Urine Ketones Negative, Urine Blood Negative, Urine Nitrate Negative, Urine Bilirubin Negative, Urine Urobilinogen 0.2, Ur Leukocyte Esterase Negative, Urine RBC Negative, Urine WBC 1 - 3, Ur Epithelial Cells 1 - 3, Urine Bacteria Few 08/23/18 18:30: Urine Opiates Screen Negative, Urine Methadone Screen Negative, Ur Barbiturates Screen Negative, Ur Phencyclidine Scrn Positive H, Ur Amphetamines Screen Negative, U Benzodiazepines Scrn Negative, U Oth Cocaine Metabols Negative, U Cannabinoids Screen Positive H 08/23/18 16:44: Alcohol, Quantitative < 10 08/23/18 16:44: Sodium 142, Potassium 4.0, Chloride 104, Carbon Dioxide 20 L, Anion Gap 22 H, BUN 15, Creatinine 1.2, Est GFR ( Amer) > 60, Est GFR (Non-Af Amer) > 60, Random Glucose 142 H, Calcium 9.9, Total Bilirubin 0.4, AST 34, ALT 27, Alkaline Phosphatase 131 H, Total Creatine Kinase 192, Total Protein 8.5 H, Albumin 5.1 H, Globulin 3.4, Albumin/Globulin Ratio 1.5 08/23/18 16:44: WBC 15.9 H, RBC 5.47, Hgb 16.1, Hct 47.1, MCV 86.1, MCH 29.4, MCHC 34.2, RDW 13.8, Plt Count 254, MPV 10.6, Gran % 72.1 H, Lymph % (Auto) 20.8 L, [place] % (Auto) 5.2, Eos % (Auto) 1.6, Baso % (Auto) 0.3, Gran # 11.49 H, Lymph # (Auto) 3.3, [place] # (Auto) 0.8 H, Eos # (Auto) 0.3, Baso # (Auto) 0.04 I have reviewed the lab results: Yes - RAD Interpretation Narrative RAD Interpretations (Text): 08/23/18 22:45 EXAM: CT Head without Intravenous Contrast. CLINICAL HISTORY: HEADACHE TECHNIQUE: Axial computed tomography images of the head/brain without intravenous contrast. 939.02 mGy-cm COMPARISON: None provided. FINDINGS: BRAIN No acute intraparenchymal hemorrhage. No mass lesion. No CT evidence for acute territorial infarct. No midline shift or extra-axial collections. VENTRICLES: No hydrocephalus. ORBITS: The orbits are unremarkable. SINUSES AND MASTOIDS: Mild bilateral ethmoid sinusitis. The mastoid air cells are clear. BONES: No fracture. SOFT TISSUES: Unremarkable. MISCELLANEOUS: No acute intracranial pathology. IMPRESSION: Sinusit No acute intracranial pathology.. Electronically signed on Aug 23, 2018 10:31:55 PM EDT by: Radhames Shepard M.D., ИРИНА Certified By ABR & CBC[employer] Fellowship Trained MRI and CT Specialist Refined Syrup Operator: Radiologist - Medication Orders Current Medication Orders: Discontinued Medications Sodium Chloride (Sodium Chloride 0.9%) 1,000 mls @ 999 mls/hr IV .Q1H1M STA Stop: 08/23/18 18:16 Last Admin: 08/23/18 17:37 Dose: 999 mls/hr eMAR Start Stop Document 08/23/18 17:37 EB (Rec: 08/23/18 17:37 [id number]) Intravenous Solution Start Date 08/23/18 Start Time 17:37 End Date 08/23/18 End time 18:37 Total Infusion Time 60 Sodium Chloride (Sodium Chloride 0.9%) 500 mls @ 999 mls/hr IV .Q31M STA Stop: 08/23/18 17:47 Last Admin: 08/23/18 18:34 Dose: 999 mls/hr eMAR Start Stop Document 08/23/18 18:34 EB (Rec: 08/23/18 18:35 EB [id number]) Intravenous Solution Start Date 08/23/18 Start Time 18:34 End Date 08/23/18 End time 19:05 Total Infusion Time 31 Lorazepam (Ativan) 1 mg IVP ONCE ONE; Protocol Stop: 08/23/18 17:17 Last Admin: 08/23/18 17:37 Dose: 1 mg IVP Administration Document 08/23/18 17:37 EB (Rec: 08/23/18 17:37 [id number]) Charges for Administration # of IVP Administrations 1 Disposition/Present on Arrival - Present on Arrival Any Indicators Present on Arrival: No History of DVT/PE: No History of Uncontrolled Diabetes: No Urinary Catheter: No History of Decub. Ulcer: No History Surgical Site Infection Following: None - Disposition Have Diagnosis and Disposition been Completed?: Yes Diagnosis: Drug abuse, Leukocytosis, Schizophrenia Disposition: HOSPITALIZED Disposition Time: 02:00 Patient Plan: Admission Patient Problems: Current Active Problems Problem Status Onset Schizophrenia Chronic Drug abuse Acute Leukocytosis Acute Condition: STABLE
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
[2018-08-24] MEDS ORDERED: Multivitamin (MVI) 10 ML, Thiamine 100 MG, Folic Acid 1 MG in Sodium Chloride 0.9% 1,00... IV ONE (02:46)
[2018-08-24 04:34] VITALS: RESP 18
[2018-08-24 04:49] LABS: BASO # 0.02 K/mm3 (0.0-2.0); BASO % 0.2 % (0.0-3.0); EOS # 0.3 (0.0-0.7); EOS % 2.4 % (1.5-5.0); GRAN # 7.42 (1.4-6.5); GRAN % 62.4 % (50.0-68.0); HEMOGLOBIN 13.8 g/dL (14.0-18.0); LYMPH # 3.3 (1.2-3.4); LYMPH % 27.9 % (22.0-35.0); MEAN CELL VOLUME 86.4 fl (80.0-105.0); MEAN CORPUSCULAR HEMOGLOBIN 28.8 pg (25.0-35.0); MEAN CORPUSCULAR HGB CONC 33.3 g/dl (31.0-37.0); MEAN PLATELET VOLUME 10.3 fl (7.0-11.0); MONO # 0.8 (0.1-0.6); MONO % 7.1 % (1.0-6.0); RBC 4.79 10^6/uL (3.5-6.1); RED CELL DISTRIBUTION WIDTH 13.8 % (11.5-14.5); WHITE BLOOD COUNT 11.9 10^3/uL (4.5-11.0)
[2018-08-24 05:23] VITALS: O2SAT 99
[2018-08-24 05:38] LABS: ALB/GLOB RATIO 1.3 (1.1-1.8); ALBUMIN 3.8 g/dL (3.0-4.8); ALT/SGPT 32 U/L (7-56); AST/SGOT 40 U/L (17-59); BLOOD UREA NITROGEN 12 mg/dL (7-21); CALCIUM 9.1 mg/dL (8.4-10.5); GFR NON-AFRICAN AMERICAN > 60
[2018-08-24] MEDS ORDERED: Multivitamin With Minerals Tab PO SCH (08:00)
--- NOTE | 2018-08-24 09:27 | CT ---
Date of service: 08/23/2018 PROCEDURE: CT HEAD WITHOUT CONTRAST. HISTORY: headache COMPARISON: None available. TECHNIQUE: Axial computed tomography images were obtained through the head/brain without intravenous contrast. Radiation dose: Total exam DLP = 939.02 mGy-cm. This CT exam was performed using one or more of the following dose reduction techniques: Automated exposure control, adjustment of the mA and/or kV according to patient size, and/or use of iterative reconstruction technique. FINDINGS: HEMORRHAGE: No intracranial hemorrhage. BRAIN: No mass effect or edema. No atrophy or chronic microvascular ischemic changes. VENTRICLES: Unremarkable. No hydrocephalus. CALVARIUM: Unremarkable. PARANASAL SINUSES: Unremarkable as visualized. No significant inflammatory changes. MASTOID AIR CELLS: Unremarkable as visualized. No inflammatory changes. OTHER FINDINGS: None. IMPRESSION: Normal CT of the Head.
[2018-08-24] MEDS ORDERED: Amoxicillin-Clav 875-125 mg Tab PO SCH (10:00)
--- NOTE | 2018-08-24 10:19 | CARD ---
APPROVED REPORT Date of service: 08/23/2018 EKG Measurement Heart [id number] <Conclusion> Sinus tachycardia No change except the rate is faster
--- NOTE | 2018-08-24 17:34 | CP.PCM.DIS ---
<Richard Thrasher - Last Filed: 08/24/18 17:30> Provider - Provider Date of Admission: 08/24/18 01:45 Attending physician: Domo Maguire MD Time Spent in preparation of Discharge (in minutes): 45 Diagnosis - Discharge Diagnosis (1) Drug abuse Status: Acute (2) Schizophrenia Status: Chronic Priority: Medium (3) Polysubstance abuse Status: Chronic Priority: High Hospital Course - Lab Results Lab Results: Most Recent Lab Values WBC 11.9 10^3/uL (4.5-11.0) H D 08/24/18 04:30 RBC 4.79 10^6/uL (3.5-6.1) 08/24/18 04:30 Hgb 13.8 g/dL (14.0-18.0) L 08/24/18 04:30 Hct 41.4 % (42.0-52.0) L 08/24/18 04:30 MCV 86.4 fl (80.0-105.0) 08/24/18 04:30 MCH 28.8 pg (25.0-35.0) 08/24/18 04:30 MCHC 33.3 g/dl (31.0-37.0) 08/24/18 04:30 RDW 13.8 % (11.5-14.5) 08/24/18 04:30 Plt Count 194 10^3/uL (120.0-450.0) 08/24/18 04:30 MPV 10.3 fl (7.0-11.0) 08/24/18 04:30 Gran % 62.4 % (50.0-68.0) 08/24/18 04:30 Lymph % (Auto) 27.9 % (22.0-35.0) 08/24/18 04:30 Orange % (Auto) 7.1 % (1.0-6.0) H 08/24/18 04:30 Eos % (Auto) 2.4 % (1.5-5.0) 08/24/18 04:30 Baso % (Auto) 0.2 % (0.0-3.0) 08/24/18 04:30 Gran # 7.42 (1.4-6.5) H 08/24/18 04:30 Lymph # (Auto) 3.3 (1.2-3.4) 08/24/18 04:30 Orange # (Auto) 0.8 (0.1-0.6) H 08/24/18 04:30 Eos # (Auto) 0.3 (0.0-0.7) 08/24/18 04:30 Baso # (Auto) 0.02 K/mm3 (0.0-2.0) 08/24/18 04:30 Sodium 141 mmol/L (132-148) 08/24/18 04:30 Potassium 3.9 mmol/L (3.6-5.0) 08/24/18 04:30 Chloride 110 mmol/L (98-107) H 08/24/18 04:30 Carbon Dioxide 24 mmol/L (21-33) 08/24/18 04:30 Anion Gap 11 (10-20) 08/24/18 04:30 BUN 12 mg/dL (7-21) 08/24/18 04:30 Creatinine 1.0 mg/dl (0.8-1.5) 08/24/18 04:30 Est GFR ( Amer) > 60 08/24/18 04:30 Est GFR (Non-Af Amer) > 60 08/24/18 04:30 Random Glucose 92 mg/dL (70-110) 08/24/18 04:30 Calcium 9.1 mg/dL (8.4-10.5) 08/24/18 04:30 Total Bilirubin 0.5 mg/dL (0.2-1.3) 08/24/18 04:30 AST 40 U/L (17-59) 08/24/18 04:30 ALT 32 U/L (7-56) 08/24/18 04:30 Alkaline Phosphatase 110 U/L (38-126) 08/24/18 04:30 Total Creatine Kinase 192 U/L (35-230) 08/23/18 16:44 Total Protein 6.6 g/dL (5.8-8.3) 08/24/18 04:30 Albumin 3.8 g/dL (3.0-4.8) 08/24/18 04:30 Globulin 2.9 gm/dL 08/24/18 04:30 Albumin/Globulin Ratio 1.3 (1.1-1.8) 08/24/18 04:30 Urine Color Yellow (YELLOW) 08/23/18 18:30 Urine Appearance Clear (CLEAR) 08/23/18 18:30 Urine pH 6.5 (4.7-8.0) 08/23/18 18:30 Ur Specific [place] 1.020 (1.005-1.035) 08/23/18 18:30 Urine Protein Trace mg/dL (<30 mg/dL) H 08/23/18 18:30 Urine Glucose (UA) Negative mg/dL (NEGATIVE) 08/23/18 18:30 Urine Ketones Negative mg/dL (NEGATIVE) 08/23/18 18:30 Urine Blood Negative (NEGATIVE) 08/23/18 18:30 Urine Nitrate Negative (NEGATIVE) 08/23/18 18:30 Urine Bilirubin Negative (NEGATIVE) 08/23/18 18:30 Urine Urobilinogen 0.2 E.U./dL (<1 E.U./dL) 08/23/18 18:30 Ur Leukocyte Esterase Negative Ángel/uL (NEGATIVE) 08/23/18 18:30 Urine RBC Negative /hpf (0-2) 08/23/18 18:30 Urine WBC 1 - 3 /hpf (0-6) 08/23/18 18:30 Ur Epithelial Cells 1 - 3 /hpf (0-5) 08/23/18 18:30 Urine Bacteria Few (NEG) 08/23/18 18:30 Urine Opiates Screen Negative (NEGATIVE) 08/23/18 18:30 Urine Methadone Screen Negative (NEGATIVE) 08/23/18 18:30 Ur Barbiturates Screen Negative (NEGATIVE) 08/23/18 18:30 Ur Phencyclidine Scrn Positive (NEGATIVE) H 08/23/18 18:30 Ur Amphetamines Screen Negative (NEGATIVE) 08/23/18 18:30 U Benzodiazepines Scrn Negative (NEGATIVE) 08/23/18 18:30 U Oth Cocaine Metabols Negative (NEGATIVE) 08/23/18 18:30 U Cannabinoids Screen Positive (NEGATIVE) H 08/23/18 18:30 Alcohol, Quantitative < 10 mg/dL (0-10) 08/23/18 16:44 - Hospital Course Hospital Course: Upon admission Mr. Lloyd is a 33 year old male with a past medical history of drug abuse and schizophrenia who presented to the [facility] Emergency Department (ED) on 08/24. Patient's was found unresponsive and foaming at the mouth by his mother, who then called EMS. Of note, patient was seen in the ED on 08/22 for agitated behavior and screaming secondary to PCP use, which was confirmed by urine drug screen, but signed out AMA. On ROS, patient denied chest pain, shortness of breath, fevers, chills, headaches, nausea, vomiting, abdominal pain, urinary complaints, numbness, tingling, visual/auditory hallucinations, suicidal ideation, and recent trauma/travel. Patient admitted to smoking 5 cigarettes per day for the past 10 years, drinking 12oz of beer daily for the past year, and using PCP. Hospital course Urine drug screen was positive for PCP and benzos. EKG was ordered and showed sinus tachycardia at 107bpm with no ST changes. A CT of the head was ordered and was negative for acute intracranial abnormalities. CT of the head did reveal ethmoid sinusitis, and augmentin was started. For history of alcohol use, CIWA protocol was initiated. Ativan, banana bag, thiamine, folic acid, and multivitamin were started. Seizure, aspiration, and fall precautions were initiated. Pepcid and heparin were started for GI/DVT prophylaxis. Psychiatry was consulted and started the patient on Risperdal. Psychiatry determined that the patient was eligible for admission to the voluntary psychiatric unit at [facility]. Patient accepted offer for admission to psychiatric unit. For a detailed record of hospital stay, please refer to medical record. Upon discharge Patient should continue Augmentin and Risperdal as prescribed. Patient should refrain from smoking cigarettes, drinking alcohol, and using PCP. Patient was informed of these instructions, and patient understood and agreed with the treatment plan to have further evaluation done by psychiatry. Discharge Exam - Head Exam Head Exam: ATRAUMATIC, NORMAL INSPECTION, NORMOCEPHALIC - Eye Exam Eye Exam: EOMI, Normal appearance, PERRL - Respiratory Exam Respiratory Exam: NORMAL BREATHING PATTERN, UNREMARKABLE. absent: Accessory Muscle Use, Decreased Breath Sounds, Rales, Rhonchi, Wheezes, Respiratory Distress, Stridor - Cardiovascular Exam Cardiovascular Exam: RRR, +S1, +S2. absent: Gallop, Rubs - GI/Abdominal Exam GI & Abdominal Exam: Normal Bowel Sounds, Soft, Unremarkable. absent: Guarding, Mass, Rigid, Tenderness - Extremities Exam Extremities exam: normal capillary refill, normal inspection, pedal pulses present - Back Exam Back exam: NORMAL INSPECTION. absent: CVA tenderness (L), CVA tenderness (R) - Neurological Exam Neurological exam: Alert, Oriented x3 - Psychiatric Exam Psychiatric exam: Normal Affect, Normal Mood - Skin Skin Exam: Dry, Intact, Normal Color, Warm Discharge Plan - Follow Up Plan Condition: STABLE Disposition: DISCHARGE TO PSYCH HOSPITAL Instructions: Sinusitis, Adult (DC), Drug Abuse and Drug Addiction (DC), Schizophrenia (DC), Schizophrenia (DC), Leukocytosis (GEN), Suicide Prevention for Adults (DC) Additional Instructions: Take Augmentin for your sinusitis for 6 more days. Take multivitamins, thiamine, folate. Avoid drugs. Continue further management at psych unit. Follow up with your PMD or [facility] upon your discharge from psych unit. Nursing If your symptoms return, return to the nearest emergency room See care notes provided for further information <Domo Maguire - Last Filed: 08/25/18 17:25> Provider - Provider Date of Admission: 08/24/18 01:45 Attending physician: Domo Maguire MD Hospital Course - Lab Results Lab Results: Micro Results 08/24/18 04:30 Blood Blood Culture - Preliminary NO GROWTH AFTER 24 HOURS 08/24/18 03:40 Blood Blood Culture - Preliminary NO GROWTH AFTER 24 HOURS Most Recent Lab Values WBC 11.9 10^3/uL (4.5-11.0) H D 08/24/18 04:30 RBC 4.79 10^6/uL (3.5-6.1) 08/24/18 04:30 Hgb 13.8 g/dL (14.0-18.0) L 08/24/18 04:30 Hct 41.4 % (42.0-52.0) L 08/24/18 04:30 MCV 86.4 fl (80.0-105.0) 08/24/18 04:30 MCH 28.8 pg (25.0-35.0) 08/24/18 04:30 MCHC 33.3 g/dl (31.0-37.0) 08/24/18 04:30 RDW 13.8 % (11.5-14.5) 08/24/18 04:30 Plt Count 194 10^3/uL (120.0-450.0) 08/24/18 04:30 MPV 10.3 fl (7.0-11.0) 08/24/18 04:30 Gran % 62.4 % (50.0-68.0) 08/24/18 04:30 Lymph % (Auto) 27.9 % (22.0-35.0) 08/24/18 04:30 Orange % (Auto) 7.1 % (1.0-6.0) H 08/24/18 04:30 Eos % (Auto) 2.4 % (1.5-5.0) 08/24/18 04:30 Baso % (Auto) 0.2 % (0.0-3.0) 08/24/18 04:30 Gran # 7.42 (1.4-6.5) H 08/24/18 04:30 Lymph # (Auto) 3.3 (1.2-3.4) 08/24/18 04:30 Orange # (Auto) 0.8 (0.1-0.6) H 08/24/18 04:30 Eos # (Auto) 0.3 (0.0-0.7) 08/24/18 04:30 Baso # (Auto) 0.02 K/mm3 (0.0-2.0) 08/24/18 04:30 Sodium 141 mmol/L (132-148) 08/24/18 04:30 Potassium 3.9 mmol/L (3.6-5.0) 08/24/18 04:30 Chloride 110 mmol/L (98-107) H 08/24/18 04:30 Carbon Dioxide 24 mmol/L (21-33) 08/24/18 04:30 Anion Gap 11 (10-20) 08/24/18 04:30 BUN 12 mg/dL (7-21) 08/24/18 04:30 Creatinine 1.0 mg/dl (0.8-1.5) 08/24/18 04:30 Est GFR ( Amer) > 60 08/24/18 04:30 Est GFR (Non-Af Amer) > 60 08/24/18 04:30 Random Glucose 92 mg/dL (70-110) 08/24/18 04:30 Calcium 9.1 mg/dL (8.4-10.5) 08/24/18 04:30 Total Bilirubin 0.5 mg/dL (0.2-1.3) 08/24/18 04:30 AST 40 U/L (17-59) 08/24/18 04:30 ALT 32 U/L (7-56) 08/24/18 04:30 Alkaline Phosphatase 110 U/L (38-126) 08/24/18 04:30 Total Creatine Kinase 192 U/L (35-230) 08/23/18 16:44 Total Protein 6.6 g/dL (5.8-8.3) 08/24/18 04:30 Albumin 3.8 g/dL (3.0-4.8) 08/24/18 04:30 Globulin 2.9 gm/dL 08/24/18 04:30 Albumin/Globulin Ratio 1.3 (1.1-1.8) 08/24/18 04:30 Urine Color Yellow (YELLOW) 08/23/18 18:30 Urine Appearance Clear (CLEAR) 08/23/18 18:30 Urine pH 6.5 (4.7-8.0) 08/23/18 18:30 Ur Specific [place] 1.020 (1.005-1.035) 08/23/18 18:30 Urine Protein Trace mg/dL (<30 mg/dL) H 08/23/18 18:30 Urine Glucose (UA) Negative mg/dL (NEGATIVE) 08/23/18 18:30 Urine Ketones Negative mg/dL (NEGATIVE) 08/23/18 18:30 Urine Blood Negative (NEGATIVE) 08/23/18 18:30 Urine Nitrate Negative (NEGATIVE) 08/23/18 18:30 Urine Bilirubin Negative (NEGATIVE) 08/23/18 18:30 Urine Urobilinogen 0.2 E.U./dL (<1 E.U./dL) 08/23/18 18:30 Ur Leukocyte Esterase Negative Ángel/uL (NEGATIVE) 08/23/18 18:30 Urine RBC Negative /hpf (0-2) 08/23/18 18:30 Urine WBC 1 - 3 /hpf (0-6) 08/23/18 18:30 Ur Epithelial Cells 1 - 3 /hpf (0-5) 10/28/18 18:30 Urine Bacteria Few (NEG) 08/23/18 18:30 Urine Opiates Screen Negative (NEGATIVE) 08/23/18 18:30 Urine Methadone Screen Negative (NEGATIVE) 08/23/18 18:30 Ur Barbiturates Screen Negative (NEGATIVE) 08/23/18 18:30 Ur Phencyclidine Scrn Positive (NEGATIVE) H 08/23/18 18:30 Ur Amphetamines Screen Negative (NEGATIVE) 08/23/18 18:30 U Benzodiazepines Scrn Negative (NEGATIVE) 08/23/18 18:30 U Oth Cocaine Metabols Negative (NEGATIVE) 08/23/18 18:30 U Cannabinoids Screen Positive (NEGATIVE) H 08/23/18 18:30 Alcohol, Quantitative < 10 mg/dL (0-10) 08/23/18 16:44 Attending/Attestation - Attestation I have personally seen and examined this patient.: Yes I have fully participated in the care of the patient.: Yes I have reviewed all pertinent clinical information, including history, physical exam and plan: Yes Notes (Text): 08/25/18 17:22 Attending note; Patient seen and examined with resident. Patient is alert and awake. Denies any chest pain, shortness of breath. Denies any abdominal pain, nausea, vomiting. Tolerating diet well. Ambulating fine. Patient is a 33 year old male with a past medical history of drug abuse and schizophrenia who presented to the [facility] Emergency Department (ED) on 08/24. Patient's was found unresponsive and foaming at the mouth by his mother, who then called EMS. Urine drug screen is positive for PCP and marijuana. Currently patient is alert and awake. No withdrawal symptoms. CT head is negative for acute events. Sinusitis; started on Augmentin. Psychiatric evaluation appreciated. Started on Risperdal. Patient agreed to go to psychiatric floor for further treatment. Transferred to today. Case discussed with psychiatrist in detail.
[2018-08-24 17:47] VITALS: BP 115/77; PULSE 72; TEMP 98.6
--- NOTE | 2018-08-25 08:30 | CON ---
DATE: 08/24/2018 SUBJECTIVE : The patient is a 33-year-old pseudo male, who has a history of schizophrenia as well as chronic , at least four prior psychiatric admissions including the transfer to [place], most recently admitted to [facility] in March 2018, and discharged against medical advice after he put in a 48-hour letter, who was admitted to medical floor for evaluation after he was found unresponsive and foaming in the mouth by his mother, who thereafter brought him to the ER. Of note, the patient was also seen in the ER two days prior on 08/22/2018, for agitated behavior, yelling and screaming in context of PCP inebriation. At that time, he had signed out AMA and . I met with the patient at bedside and I also reviewed prior records as well as recent notes on the unit. He is cooperative with my questioning and appears to have become much more oriented overnight and his admission to the medical floor. He is aware of where he is and current months in the year, he readily admits that he has been using PCP but denies having a dependency says he only uses it once a month and admitted that he is engaged prior to his presentations to the ER. The patient cannot give me any information regarding the circumstances that lead to his admission. He could not why he was lying down. Again, he is quick forthcoming on the fact that he was high on PCP. The patient denies any alcohol use at that time either. I specifically asked the patient if he had any prior history of similar presentations and he denied , however, review of his records indicate that he has been admitted before and after he was found lying on the sidewalk, responds to internal stimuli and this was related to his recent admission to [facility] in October 2017. Presently, he denies having any psychiatric complaints and he does not appear to be responding to internal stimuli , his response is irrelevant to questioning and they are consistent even with repeated questioning. He denies any depression, hallucinations, or acute paranoia and he does not appear to be hypervigilant and delusions were not elicited. Has been in good control on the medical floor and has been cooperative with staff to start with and their requests. The patient's presentation may be very likely just be secondary to PCP intoxication; however, it is understood that other etiologies should be ruled out. His insight and judgement are improving and considered fair at this time and so I cannot predict wether it will diminish if he is in fact an illusive phase of delirium. VITAL SIGNS/ LABS : Are reviewed. UTS was positive for PCP on 08/23/2018, 08/22/2018 and 04/06/2018, of this year as well as marijuana. The patient is not on any psychiatric medications except for Ativan, 0.5 IV q 6 p.r.n. PSYCHIATRY HISTORY : As noted above. The patient has been psychiatrically In hospital at least five times including [place]. Most recent hospitalization in 03/2008, after he was brought here for evaluation after he was found lying on the sidewalk responding to internal stimuli smiling inappropriately and actively hallucinating. The patient left AMA after he had signed a 48 hour letter [facility] was called to first screening however found that the patient was not committable. The patient was also admitted in 05/2016, and 12/2015, specifically in 12/2015, he was [facility] after he had put in a 48 hour letter. Previously he has been treated with Depakote and trazodone and Risperdal in the past. Also admitted to [facility] also in 2014. Denies any history of suicide attempts. SOCIAL HISTORY: The patient reports that he was born and raised in [place]. He is single. He has two children who are three and six years old who do not live with him who lives with his mother. He is unemployed as noted to have current PCP. 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 RECOMMENDATIONS: 1. At this time, I would start patient on a small dose of Risperdal 0.5 mg am and .h.s. help the process to clear up and in past recovery he is not hallucinating at this time but I cannot rule out the fact that he might be in the elicit phase of delirium and this might help with his impulse control. 2. At this time, he does not want to sign in voluntarily unit however he does not currently meet criteria for involuntary commitment and psychiatry will continue to follow with the patient to ensure that his mental status continues to improves and his impulse control and his behavior continues to be good and clam respectively. Judith Coronel MD
== END 2018-08-24 21:57 | DRG 747 ==
LOC: ED 16:27 → ERH 08-24 01:45 → 2RSO 08-24 03:51
PROVIDERS: ADMIT Hospitalist; ATTEND Internal Medicine
DX: F16.90 Hallucinogen use, unspecified, uncomplicated (principal); F20.9 Schizophrenia, unspecified; J32.2 Chronic ethmoidal sinusitis; D72.829 Elevated white blood cell count, unspecified; F17.210 Nicotine dependence, cigarettes, uncomplicated; Z91.14 Patient's other noncompliance with medication regimen

== ENCOUNTER 2018-08-24 21:56 | Inpatient (IN) | payer OTHER ==
[2018-08-23 16:28] VITALS: BMI 25.0
[2018-08-24] MEDS ORDERED: Alum-Mag Hydrox-Simethicone Susp (30 mL) PO PRN (23:07)
--- NOTE | 2018-08-25 01:12 | PCM.BM ---
<Margaret Ricks - Last Filed: 08/25/18 01:30> Treatment Plan Problems - Problems identified on initial assessmt Auditory hallucinations Date Initiated: 08/24/18 Time Initiated: 23:45 Assessment reference: NA Status: Active visual hallucinatios Date Initiated: 08/24/18 Time Initiated: 23:45 Assessment reference: NA Status: Active Medication nonadherence Date Initiated: 08/24/18 Time Initiated: 23:45 Assessment reference: NA Status: Active Altered thought process Date Initiated: 08/24/18 Time Initiated: 23:45 Assessment reference: NA Status: Active Treatment assets and liabiliti Patient Assests: cooperative, self-reliant, ADL independent, physically healthy, negotiates basic needs <Jessica Fernandez - Last Filed: 08/25/18 12:53> - Diagnosis (1) Polysubstance abuse Status: Chronic Interventions: 08/25/18 12:53 Monitoring withdrawal symptoms Medical detoxification Pharmacotherapy for alcohol/benzos/opioid dependence Maintaining sobriety Relapse prevention Possible rehabilitation Motivational interviewing 12-step programs: AA meetings (2) Schizophrenia Status: Chronic Interventions: 08/25/18 12:54 Psychoeducation/psychotherapy Psychopharmacology/adjustment of medications as needed/ monitoring possible side effects Evaluate pt on daily basis Compliance with medications and follow up appointments Long acting medication if pt is noncompliant with pill form Suicide and homicide risk assessment and prevention, coping strategies, safety plan Relapse prevention Reduction of symptoms Improve functional status Possible assertive community treatment Cognitive behavioral therapy Family involvement Possible social skill training as outpatient <Christiane Amin - Last Filed: 08/26/18 15:20> Family Contact Family involvement: Family/SO is involved Family contact: Patient agrees to contact Family contact name: Anna Lloyd(mother) Family contacted how many times per week?: 2
[2018-08-25 07:29] VITALS: RESP 20
[2018-08-25 08:29] LABS: GLUCOSE,FASTING 90 mg/dL (65-110); HDL CHOLESTEROL 28 mg/dL (29-60)
[2018-08-25 08:39] LABS: LDL CHOLESTEROL 90 mg/dL (0-129)
[2018-08-25] MEDS: Amoxicillin-Clav 875-125 mg Tab PO SCH ×2 (09:07→17:26)
[2018-08-25] MEDS ORDERED: DiphenhydrAMINE 50 mg/ml Inj IM PRN (12:19)
[2018-08-25] MEDS: Multivitamin With Minerals Tab PO SCH (12:33)
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
[2018-08-26] MEDS: Amoxicillin-Clav 875-125 mg Tab PO SCH ×2 (06:36→17:14)
[2018-08-26] MEDS: Multivitamin Therapeutic Tab PO SCH (09:20)
[2018-08-26] MEDS: Multivitamin With Minerals Tab PO SCH (09:21)
--- NOTE | 2018-08-26 13:56 | PCM.PYCHPN ---
Psychiatric Progress Note - Psychiatric Progress Note Patient seen today, length of contact: 30 minutes Patient Chief Complaint: "when SW types, I am receiving messages in my head, I saw a TV news and they were asking if anyone knew Isaiah, I knew that they were asking about me because I am not at home now...I feel optimistic, I feel good now". Problems Identified/Issues Discussed: Suicide/ homicide prevention, past psychiatric h/o, current psychiatric symptoms, medical problems, risk/benefits and alternatives of medications, medications compliance, coping strategies, substance abuse h/o, relapse prevention, importance of follow up with psychiatrist and therapist, discharge plan. Medical Problems: pt was seen by medical team now pt is on abx Augmentin Diagnostic Results: Lab Results 08/25/18 08:00: TSH 3rd Generation 0.73 08/25/18 08:00: Fasting Glucose 90, Triglycerides 114, Cholesterol 132, LDL Cholesterol Direct 90, HDL Cholesterol 28 L Vital Signs Temp Pulse Pulse Resp BP 08/26/18 07:12 97.7 F 63 20 102/83 08/25/18 16:00 69 105/65 08/25/18 07:28 97.6 F 61 20 108/69 08/25/18 00:10 78 17 DSM 5 Symptoms Update: Patient is a single 33 year old male with history of schizophrenia, 4 prior admissions, most recently admitted to [facility] in March 2018, pt was screened by [facility] [place]'t [place], on 12/2015 and was involuntary transferred to [facility], noncompliant with meds and follow up appts. pt was initially admitted to the medical side for AMS, pt was unresponsive and foaming in the mouth, pt was in ER two days prior on 08/22/18 for agitated behavior, yelling and screaming in context of PCP induced psychosis, pt was d/c AMA. pt was seen by on the medical site pt presented to be disorganized, psychotic, was offered psych admission, pt was transferred to the unit on 08/24/18 uneventfully. pt requires further evaluation and stabilization and meds adjustment. pt was seen at the treatment team meeting, patient presented to be disorganized, psychotic, smiling inappropriately, very intense eye contact, fair personal hygiene, good ADLs. pt is still psychotic saying: "when SW types, I am receiving messages in my head, I saw a TV news and they were asking if anyone knew Isaiah, I knew that they were asking about me because I am not at home now...I feel optimistic, I feel good now". overall pt is not agitated or aggressive, compliant with meds, AIMS 0, no EPS. Impression: He schizophrenia Rule out substance-induced psychosis Marijuana abuse Stimulants abuse Medication Change: Yes (Zyprexa increased) Medical Record Reviewed: Yes Consults ordered or reviewed: medical consult appreciated, please see notes for more detailed information. Mental Status Examination - Cognitive Function Orientation: Person, Place, Situation, Time Memory: Impaired Attention: Poor Concentration: Poor Association: Loose Fund of Knowledge: Poor - Mood Mood: Neutral - Affect Affect: Constricted, Other (at times smiles inappropriately) - Formal Thought Process Formal Thought Process: Hallucinations, Delusions, Paranoia, Loosening of associations, Circumstantial, Thought Broadcasting - Suicidal Ideation Suicidal Ideation: No - Homicidal Ideation Homicidal Ideation: No Goal/Treatment Plan - Goal/Treatment Plan Need for Continued Stay: Remain at risks for inpatient hospitalization, Severe depression anxiety, Discharge may exacerbated symptoms, Severe functional impairment Progress Toward Problem(s) and Goals/Treatment Plan: Milieu/structure/supportive therapy Medical consult was done on the med floor pt is on antibiotics for sinusitis zyprexa 5mg po bid for psychosis PRN meds (haldol/benadryl/ativan) trazodon 50mg po hs for insomnia SW consultation for discharge plan and social issues Family involvement Follow up on labs Will monitor closely Pt was educated about risk/benefits and alternatives of medications, coping strategies (safety plan, suicide prevention), relapse prevention, importance of follow up with psychiatrist and therapist, stay away from drugs/alcohol/smoking Estimated Date of D/C: 09/02/18
[2018-08-26] MEDS: OLANZapine 5 mg Disintegrating Tab PO SCH (21:21)
[2018-08-27] MEDS: Amoxicillin-Clav 875-125 mg Tab PO SCH ×2 (06:06→18:07)
[2018-08-27] MEDS: OLANZapine 5 mg Disintegrating Tab PO SCH ×3 (09:15→21:10)
[2018-08-27] MEDS: Multivitamin With Minerals Tab PO SCH (09:16)
--- NOTE | 2018-08-27 14:09 | PCM.PYCHPN ---
Psychiatric Progress Note - Psychiatric Progress Note Patient seen today, length of contact: 30 minutes Patient Chief Complaint: "I'm doing just fine, I do want to be on any invega, no no, I don't want to have a shot..." Problems Identified/Issues Discussed: Suicide/ homicide prevention, past psychiatric h/o, current psychiatric symptoms, medical problems, risk/benefits and alternatives of medications, medications compliance, coping strategies, substance abuse h/o, relapse prevention, importance of follow up with psychiatrist and therapist, discharge plan. Medical Problems: pt was seen by medical team now pt is on abx Augmentin Diagnostic Results: Lab Results 08/25/18 08:00: TSH 3rd Generation 0.73 08/25/18 08:00: Fasting Glucose 90, Triglycerides 114, Cholesterol 132, LDL Cholesterol Direct 90, HDL Cholesterol 28 L Vital Signs Temp Pulse Pulse Resp BP 08/26/18 07:12 97.7 F 63 20 102/83 08/25/18 16:00 69 105/65 08/25/18 07:28 97.6 F 61 20 108/69 08/25/18 00:10 78 17 DSM 5 Symptoms Update: Patient is a single 33 year old male with history of schizophrenia, 4 prior admissions, most recently [place] [facility] [place], [place] was [place] [facility] [place], on 12[place] and was involuntary transferred [place] [facility] non compliant with meds and follow up appts. pt was initially admitted to the medical side for AMS, pt was unresponsive and foaming in the mouth, pt was in ER two days prior on 08/22/18 for agitated behavior, yelling and screaming in context of PCP induced psychosis, pt was d/c AMA. pt was seen by on the medical site pt presented to be disorganized, psychotic, was offered psych admission, pt was transferred to the unit on 08/24/18 uneventfully. pt requires further evaluation and stabilization and meds adjustment. pt was seen [facility] today, as per rn social services collateral in formation from mother, patient was doing well on injectable form of Invega Sustenna, as per mother pt was doing good and "acting normal when was on it", last time pt was on it was in January 2018, as per mother, she will allow pt to go back to her house ONLY if pt will agree to have injectable form of med. Patient's mother reports patient was doing well since November or December 2017. Patient's mother reports patient was going to work. Patient's mother reports patient was found on Friday08/22/18, pt seemed to be under the influence of drugs, pt was evaluated by ED, then was d/c, on 08/23/18 pt was admitted to the med side for possible seizure, incoherent stage. Patient's mother reports patient pt did significantly better when he was on Invega. Patient's mother reports pt last took Invega January 2018. as per staff pt is easily irritated, pt also is preoccupied with females, needs constant redirection. pt still disorganized, psychotic. discussed injectable form of meds, pt said "no way, I don't want to be on any injection...". overall pt is not agitated or aggressive, compliant with meds, AIMS 0, no EPS. Impression: He schizophrenia Rule out substance-induced psychosis Marijuana abuse Stimulants abuse Medication Change: Yes (Zyprexa increased) Medical Record Reviewed: Yes Mental Status Examination - Cognitive Function Orientation: Person, Place, Situation, Time Memory: Impaired Attention: Poor Concentration: Poor Association: Loose Fund of Knowledge: Poor - Mood Mood: Neutral - Affect Affect: Constricted, Other (at times smiles inappropriately) - Formal Thought Process Formal Thought Process: Hallucinations, Delusions, Paranoia, Loosening of associations, Circumstantial, Thought Broadcasting - Suicidal Ideation Suicidal Ideation: No - Homicidal Ideation Homicidal Ideation: No Goal/Treatment Plan - Goal/Treatment Plan Need for Continued Stay: Remain at risks for inpatient hospitalization, Severe depression anxiety, Discharge may exacerbated symptoms, Severe functional impairment Progress Toward Problem(s) and Goals/Treatment Plan: Milieu/structure/supportive therapy Medical consult was done on the med floor pt is on antibiotics for sinusitis zyprexa 5mg po bid and hs for psychosis depakote will be added for mood stabilization 250mg po bid PRN meds (haldol/benadryl/ativan) trazodon 50mg po hs for insomnia SW consultation for discharge plan and social issues Family involvement Follow up on labs Will monitor closely Pt was educated about risk/benefits and alternatives of medications, coping strategies (safety plan, suicide prevention), relapse prevention, importance of follow up with psychiatrist and therapist, stay away from drugs/alcohol/smoking Estimated Date of D/C: 09/02/18
[2018-08-27] MEDS: Divalproex 250 mg DR (BID formulation) PO SCH (18:07)
[2018-08-28] MEDS: Amoxicillin-Clav 875-125 mg Tab PO SCH (06:27)
[2018-08-28] MEDS: Divalproex 250 mg DR (BID formulation) PO SCH ×2 (08:12→16:48)
[2018-08-28] MEDS: OLANZapine 5 mg Disintegrating Tab PO SCH ×3 (08:12→21:34)
[2018-08-28] MEDS: Multivitamin With Minerals Tab PO SCH (08:13)
--- NOTE | 2018-08-28 13:41 | PCM.PYCHPN ---
Psychiatric Progress Note - Psychiatric Progress Note Patient seen today, length of contact: 30 minutes Patient Chief Complaint: "did you hear what I hear on TV?" Problems Identified/Issues Discussed: Suicide/ homicide prevention, past psychiatric h/o, current psychiatric s ymptoms, medical problems, risk/benefits and alternatives of medications, medications compliance, coping strategies, substance abuse h/o, relapse prevention, importance of follow up with psychiatrist and therapist, discharge plan. Medical Problems: pt was seen by medical team now pt is on abx Augmentin Diagnostic Results: Lab Results 08/25/18 08:00: TSH 3rd Generation 0.73 08/25/18 08:00: Fasting Glucose 90, Triglycerides 114, Cholesterol 132, LDL Cholesterol Direct 90, HDL Cholesterol 28 L Vital Signs Temp Pulse Pulse Resp BP 08/26/18 07:12 97.7 F 63 20 102/83 08/25/18 16:00 69 105/65 08/25/18 07:28 97.6 F 61 20 108/69 08/25/18 00:10 78 17 Temp Pulse Resp BP Pulse Ox 97.9 F 73 20 102/62 08/28/18 07:02 08/28/18 07:02 08/28/18 07:02 08/28/18 07:02 DSM 5 Symptoms Update: Patient is a single 33 year old male with history of schizophrenia, 4 prior admissions, most recently admitted to [facility] [place], pt was screened by [facility] wasn't committed, on 12/2015 and was involuntary transferred to [facility], noncompliant with meds and follow up appts. pt was initially admitted to the medical side for AMS, pt was unresponsive and foaming in the mouth, pt was in ER two days prior on 08/22/18 for agitated behavior, yelling and screaming in context of PCP induced psychosis, pt was d/c AMA. pt was seen by on the medical site pt presented to be disorganized, psychotic, was offered psych admission, pt was transferred to the unit on 08/24/18 uneventfully. pt requires further evaluation and stabilization and meds adjustment. pt was seen at the treatment team meeting room, pt disorganized, staring at this investment underwriter and smiling, intimidating glance. pt still had bizarre delusions, ideas of references, pt felt that TV was sending him messages that his neck will be cut, pt had full conversation with turned off TV. pt's mother left this investment underwriter message, pt gave written consent for collaterals. as per Mother the only medication which help pt was invega, pt was attending DTP program at [facility], was on invega Sustenna, but she does not remember the dose, last time was in January 2018, she reported "Isaiah was doing very well, he was working". SW called to [facility] DTP, pt was on 156mg monthly. pt agreed to start PO invega, [facility] pharmacy was called in for prescription of 3mg po bid, it was delivered, with the plan to give IM sustenna. as per staff pt is easily irritated, pt also is preoccupied with females, needs constant redirection. pt still disorganized, psychotic. discussed injectable form of meds, pt said "no way, I don't want to be on any injection...". overall pt is not agitated or aggressive, compliant with meds, AIMS 0, no EPS. Impression: He schizophrenia Rule out substance-induced psychosis Marijuana abuse Stimulants abuse Medication Change: Yes (invega 3mg po amhs, with plan to give sustenna) Medical Record Reviewed: Yes Consults ordered or reviewed: medical consult appreciated, please see notes for more detailed information. Mental Status Examination - Cognitive Function Orientation: Person, Place, Situation, Time Memory: Impaired Attention: Poor Concentration: Poor Association: Loose Fund of Knowledge: Poor - Mood Mood: Neutral - Affect Affect: Constricted, Other (at times smiles inappropriately) - Formal Thought Process Formal Thought Process: Hallucinations, Delusions, Paranoia, Loosening of associations, Circumstantial, Thought Broadcasting - Suicidal Ideation Suicidal Ideation: No - Homicidal Ideation Homicidal Ideation: No Goal/Treatment Plan - Goal/Treatment Plan Need for Continued Stay: Remain at risks for inpatient hospitalization, Severe depression anxiety, Discharge may exacerbated symptoms, Severe functional impairment Progress Toward Problem(s) and Goals/Treatment Plan: Milieu/structure/supportive therapy Medical consult was done on the med floor pt is on antibiotics for sinusitis Invega 3mg po bid for psychosis, with the plan to increase it further, and give IM of invega sustenna 156mg zyprexa 5mg po bid and hs for psychosis, will start weaning off when Invega will be effective depakote for mood stabilization 250mg po bid PRN meds (haldol/benadryl/ativan) trazodon 50mg po hs for insomnia SW consultation for discharge plan and social issues Family involvement Follow up on labs Will monitor closely Pt was educated about risk/benefits and alternatives of medications, coping strategies (safety plan, suicide prevention), relapse prevention, importance of follow up with psychiatrist and therapist, stay away from drugs/alcohol/smoking Estimated Date of D/C: 09/02/18
[2018-08-28] MEDS: INVEGA 3 MG PO SCH (21:36)
[2018-08-29] MEDS: Divalproex 250 mg DR (BID formulation) PO SCH ×2 (08:33→16:59)
[2018-08-29] MEDS: Multivitamin With Minerals Tab PO SCH (08:33)
[2018-08-29] MEDS: OLANZapine 5 mg Disintegrating Tab PO SCH ×3 (08:34→21:47)
--- NOTE | 2018-08-29 09:16 | PCM.PYCHPN ---
Psychiatric Progress Note - Psychiatric Progress Note Patient seen today, length of contact: 30 minutes Problems Identified/Issues Discussed: I reviewed assessment and recent notes. I met with patient in the dayroom. He appears well groomed and superficially pleasant however he is oddly related and stares bizarrely at times. He readily admits that he continues to have auditory hallucinations and indicates that "the voices don't bother me". Feels "all right" and denies SI/HI. He seems paranoid, disorganized and preoccupied however denies any persecutory thoughts. I am not sure I believe him. Patient denies any side effects or discomfort and denies any concerns in this regard. Patient ind icates that he is anxious and stressed about being locked on the unit. Staff notes indicates that patient has been labile and irritable at time with IOR/delusions. He needs redirection due to preocupiation with females. There were no behavioral issues overnight however he remains unpredictable due to his psychosis--patient admitted to me that he doesn't know if the auditory hallucinations are real or not. Diagnostic Results: schizophrenia Rule out substance-induced psychosis Marijuana abuse Stimulants abuse Medication Change: Yes (invega 3mg po amhs, with plan to give sustenna) Medical Record Reviewed: Yes Mental Status Examination - Cognitive Function Orientation: Person, Place, Situation, Time Memory: Impaired Attention: Poor Concentration: Poor Association: Loose Fund of Knowledge: Poor - Mood Mood: Neutral - Affect Affect: Constricted, Other (at times smiles inappropriately, labile, odd) - Formal Thought Process Formal Thought Process: Hallucinations, Delusions, Paranoia, Loosening of associ ations, Circumstantial, Thought Broadcasting - Suicidal Ideation Suicidal Ideation: No - Homicidal Ideation Homicidal Ideation: No Goal/Treatment Plan - Goal/Treatment Plan Need for Continued Stay: Remain at risks for inpatient hospitalization, Severe depression anxiety, Discharge may exacerbated symptoms, Severe functional impairment Progress Toward Problem(s) and Goals/Treatment Plan: * c/w current tx and plan * Cross titrate Zyprexa 5 mg po bid to Invega 3mg po bid for psychosis, with the plan to increase it further, and give IM of invega sustenna 156mg * No new weekend lab results noted thus far * Vitals reviewed and noted below: Selected Entries 08/28/18 08/28/18 07:02 16:00 Temperature 97.9 F Pulse Rate 73 86 Respiratory 20 Rate Blood Pressure 102/62 119/71 Estimated Date of D/C: 09/02/18
[2018-08-29] MEDS: INVEGA 3 MG PO SCH ×2 (10:12→22:03)
[2018-08-30] MEDS: OLANZapine 5 mg Disintegrating Tab PO SCH ×3 (09:07→21:17)
[2018-08-30] MEDS: Multivitamin With Minerals Tab PO SCH (09:07)
[2018-08-30] MEDS: Divalproex 250 mg DR (BID formulation) PO SCH ×2 (09:07→17:26)
[2018-08-30] MEDS: INVEGA 3 MG PO SCH (09:08)
--- NOTE | 2018-08-30 09:14 | PCM.PYCHPN ---
Psychiatric Progress Note - Psychiatric Progress Note Patient seen today, length of contact: 30 minutes Problems Identified/Issues Discussed: I reviewed recent notes and met with patient in the dayroom. He appears well groomed and superficially pleasant however he remains oddly related and stares bizarrely at times. He readily admits that he continues to have auditory hallucinations and indicates that "the voices don't bother me". Feels "all right" and denies SI/HI. Patient put in a 48 hour notic on 08/29/18 at 5:30 pm and will not retract notice. He still seems paranoid, disorganized and preoccupied. Though process is disorganized, he cannot maintain a logical conversation with me and becomes derailed in the middle of a response. Patient denies any side effects or discomfort and denies any concerns in this regard. Staff notes indicates that patient has been labile and irritable at time with IOR/delusions. He needs redirection due to preoccupation with females. He received Haldol prn for psychosis on Friday. There were no behavioral issues over the weekend however he remains unpredictable due to his psychosis--patient admitted to me on Friday that he doesn't know if the auditory hallucinations are real or not. Diagnostic Results: schizophrenia Rule out substance-induced psychosis Marijuana abuse Stimulants abuse Medication Change: Yes (increased invega, added cogentin, decreased zyp) Medical Record Reviewed: Yes Mental Status Examination - Cognitive Function Orientation: Person, Place, Situation, Time Memory: Impaired Attention: Poor Concentration: Poor Association: Loose Fund of Knowledge: Poor - Mood Mood: Neutral - Affect Affect: Constricted, Other (at times smiles inappropriately, labile, odd) - Formal Thought Process Formal Thought Process: Hallucinations, Delusions, Paranoia, Loosening of associations, Circumstantial, Thought Broadcasting - Suicidal Ideation Suicidal Ideation: No - Homicidal Ideation Homicidal Ideation: No Goal/Treatment Plan - Goal/Treatment Plan Need for Continued Stay: Remain at risks for inpatient hospitalization, Severe depression anxiety, Discharge may exacerbated symptoms, Severe functional impairment Progress Toward Problem(s) and Goals/Treatment Plan: * c/w current tx and plan * Cross titrate Zyprexa to Invega for psychosis. * Invega increased to 3 mg AM and 6 mg HS on 08/30/18 with the plan to increase it further as necessary. * Zyprexa decreased to 5 mg po AM and 5 mg HS on 08/30/18. * Cogentin 1 mg po bid started for EPS prophylaxis. * To give IM of invega sustenna 156mg when patient agrees * No new weekend lab results noted thus far * Vitals reviewed and noted below: Selected Entries 08/29/18 08/29/18 07:28 15:43 Temperature 97.2 F L Pulse Rate 78 76 Respiratory 20 Rate Blood Pressure 120/80 109/52 L * [place] [facility] [place] Estimated Date of D/C: 09/02/18
[2018-08-31] MEDS: Divalproex 250 mg DR (BID formulation) PO SCH ×2 (09:25→17:42)
[2018-08-31] MEDS: OLANZapine 5 mg Disintegrating Tab PO SCH (09:25)
[2018-08-31] MEDS: Multivitamin With Minerals Tab PO SCH (09:25)
--- NOTE | 2018-08-31 13:50 | PCM.PYCHPN ---
Psychiatric Progress Note - Psychiatric Progress Note Patient seen today, length of contact: 30 minutes Patient Chief Complaint: "I want to go home" Problems Identified/Issues Discussed: Suicide/ homicide prevention, past psychiatric h/o, current psychiatric symptoms, medical problems, risk/benefits and alternatives of medications, medications compliance, coping strategies, substance abuse h/o, relapse prevention, importance of follow up with psychiatrist and therapist, discharge plan. Medical Problems: pt was seen by medical team now pt is on abx Augmentin Diagnostic Results: Lab Results 08/25/18 08:00: TSH 3rd Generation 0.73 08/25/18 08:00: Fasting Glucose 90, Triglycerides 114, Cholesterol 132, LDL Cholesterol Direct 90, HDL Cholesterol 28 L Vital Signs Temp Pulse Pulse Resp BP 08/26/18 07:12 97.7 F 63 20 102/83 08/25/18 16:00 69 105/65 08/25/18 07:28 97.6 F 61 20 108/69 08/25/18 00:10 78 17 Temp Pulse Resp BP Pulse Ox 97.9 F 73 20 102/62 08/28/18 07:02 08/28/18 07:02 08/28/18 07:02 08/28/18 07:02 DSM 5 Symptoms Update: Patient is a single 33 year old male with history of schizophrenia, 4 prior admissions, most recently admitted to [facility] in March 2018, pt was screened by [facility] wasn't committed, on 12/2015 and was involuntary transferred to [facility], noncompliant with meds and follow up appts. pt was initially admitted to the medical side for AMS, pt was unresponsive and foaming in the mouth, pt was in ER two days prior on 08/22/18 for agitated behavior, yelling and screaming in context of PCP induced psychosis, pt was d/c AMA. pt was seen by on the medical site pt presented to be disorganized, psychotic, was offered psych admission, pt was transferred to the unit on 08/24/18 uneventfully. pt requires further evaluation and stabilization and meds adjustment. pt was seen next to the nursing station. pt is irritable/agitated, submitted 48hr notice, was accepted for [facility] screening. pt was not able to comprehend the concept of involuntary commitment. pt gave consent for collaterals from mother. as per Mother the only medication which help pt was invega, pt was attending DTP program at [facility], was on invega Sustenna, but she does not remember the dose, last time was in January 2018, she reported "Isaiah was doing very well, he was working". SW called to [facility] DTP, pt was on 156mg monthly. pt agreed to start PO invega, [facility] pharmacy was called in for prescription of 6mg po bid, it was delivered, with the plan to give IM sustenna. as per staff pt is easily irritated, pt also is preoccupied with females, needs constant redirection. pt still disorganized, psychotic. discussed injectable form of meds, pt said "no way, I don't want to be on any injection...". overall pt is not agitated or aggressive, compliant with meds, AIMS 0, no EPS. Impression: He schizophrenia Rule out substance-induced psychosis Marijuana abuse Medication Change: Yes (increased invega, added cogentin, decreased zyp) Medical Record Reviewed: Yes Mental Status Examination - Cognitive Function Orientation: Person, Place, Situation, Time Memory: Impaired Attention: Poor Concentration: Poor Association: Loose Fund of Knowledge: Poor - Mood Mood: Neutral - Affect Affect: Constricted, Other (at times smiles inappropriately, labile, odd) - Formal Thought Process Formal Thought Process: Hallucinations, Delusions, Paranoia, Loosening of associations, Circumstantial, Thought Broadcasting - Suicidal Ideation Suicidal Ideation: No - Homicidal Ideation Homicidal Ideation: No Goal/Treatment Plan - Goal/Treatment Plan Need for Continued Stay: Remain at risks for inpatient hospitalization, Severe depression anxiety, Discharge may exacerbated symptoms, Severe functional impai rment Progress Toward Problem(s) and Goals/Treatment Plan: Milieu/structure/supportive therapy Medical consult was done on the med floor pt is on antibiotics for sinusitis Invega 6mg po bid for psychosis, with the plan to increase it further, and give IM of invega sustenna 156mg zyprexa 5d/c depakote for mood stabilization 250mg po bid PRN meds (haldol/benadryl/ativan) trazodon 50mg po hs for insomnia SW consultation for discharge plan and social issues Family involvement Follow up on labs Will monitor closely Pt was educated about risk/benefits and alternatives of medications, coping strategies (safety plan, suicide prevention), relapse prevention, importance of follow up with psychiatrist and therapist, stay away from drugs/alcohol/smoking [facility] will accept pt whenever bed is available. Estimated Date of D/C: 09/02/18
[2018-08-31] MEDS: INVEGA 6 MG PO SCH (21:26)
[2018-08-31] MEDS ORDERED: Home Med 1 UNIT PO SCH (22:00)
[2018-09-01] MEDS: Multivitamin With Minerals Tab PO SCH (08:40)
[2018-09-01] MEDS: Divalproex 250 mg DR (BID formulation) PO SCH ×2 (08:40→17:19)
[2018-09-01] MEDS: INVEGA 6 MG PO SCH ×2 (09:12→21:02)
--- NOTE | 2018-09-01 15:21 | PCM.PYCHPN ---
Psychiatric Progress Note - Psychiatric Progress Note Patient seen today, length of contact: 30 minutes Patient Chief Complaint: "If I will tell you that I hear voices you will hold it against me" Problems Identified/Issues Discussed: Suicide/ homicide prevention, past psychiatric h/o, current psychiatric symptoms, medical problems, risk/benefits and alternatives of medications, medications compliance, coping strategies, substance abuse h/o, relapse prevention, importance of follow up with psychiatrist and therapist, discharge plan. Medical Problems: pt was seen by medical team now pt is on abx Augmentin Diagnostic Results: Lab Results 08/25/18 08:00: TSH 3rd Generation 0.73 08/25/18 08:00: Fasting Glucose 90, Triglycerides 114, Cholesterol 132, LDL Cholesterol Direct 90, HDL Cholesterol 28 L Vital Signs Temp Pulse Pulse Resp BP 08/26/18 07:12 97.7 F 63 20 102/83 08/25/18 16:00 69 105/65 08/25/18 07:28 97.6 F 61 20 108/69 08/25/18 00:10 78 17 Temp Pulse Resp BP Pulse Ox 97.9 F 73 20 102/62 08/28/18 07:02 08/28/18 07:02 08/28/18 07:02 08/28/18 07:02 DSM 5 Symptoms Update: Patient is a single 33 year old male with history of schizophrenia, 4 prior admissions, most recently admitted to [facility] in March 2018, pt was screened by [facility] wasn't committed, on 12/2015 and was involuntary transferred to [facility], noncompliant with meds and follow up appts. pt was initially admitted to the medical side for AMS, pt was unresponsive and foaming in the mouth, pt was in ER two days prior on 08/22/18 for agitated behavior, yelling and screaming in context of PCP induced psychosis, pt was d/c AMA. pt was seen by on the medical site pt presented to be disorganized, psychotic, was offered psych admission, pt was transferred to the unit on 08/24/18 uneventfully. pt requires further evaluation and stabilization and meds adjustment. pt was seen t the treatment team room. pt presented much calmer to compare with yesterday, patient is waiting for [facility] bed to be available. Patient is unsatisfied with this decision, but not fighting over it. patient still presented to be disorganized., bbut no agitation or aggression. as per staff pt is easily irritated, pt also is preoccupied with females, needs constant redirection. pt still disorganized, psychotic. pt gave consent for collaterals from mother. as per Mother the only medication which help pt was invega, pt was attending DTP program at [facility], was on invega Sustenna, but she does not remember the dose, last time was in January 2018, she reported "Isaiah was doing very well, he was working". SW called to [facility] DTP, pt was on 156mg monthly. [facility] pharmacy was called in for prescription of 6mg po bid, it was delivered, with the plan to give IM sustenna. overall pt is not agitated or aggressive, compliant with meds, AIMS 0, no EPS. Impression: He schizophrenia Rule out substance-induced psychosis Marijuana abuse Medication Change: Yes (invega increased to 6mg bid) Medical Record Reviewed: Yes Consults ordered or reviewed: medical consult appreciated, please see notes for more detailed information. Mental Status Examination - Cognitive Function Orientation: Person, Place, Situation, Time Memory: Impaired Attention: Poor Concentration: Poor Association: Loose Fund of Knowledge: Poor - Mood Mood: Neutral - Affect Affect: Constricted, Other (at times smiles inappropriately, labile, odd) - Formal Thought Process Formal Thought Process: Hallucinations, Delusions, Paranoia, Loosening of associations, Circumstantial, Thought Broadcasting - Suicidal Ideation Suicidal Ideation: No - Homicidal Ideation Homicidal Ideation: No Goal/Treatment Plan - Goal/Treatment Plan Need for Continued Stay: Remain at risks for inpatient hospitalization, Severe depression anxiety, Discharge may exacerbated symptoms, Severe functional impairment Progress Toward Problem(s) and Goals/Treatment Plan: Milieu/structure/supportive therapy Medical consult was done on the med floor pt is on antibiotics for sinusitis Invega 6mg po bid for psychosis, with the plan to increase it further, and give IM of invega sustenna 156mg zyprexa d/c depakote for mood stabilization 250mg po bid PRN meds (haldol/benadryl/ativan) trazodon 50mg po hs for insomnia SW consultation for discharge plan and social issues Family involvement Follow up on labs Will monitor closely Pt was educated about risk/benefits and alternatives of medications, coping strategies (safety plan, suicide prevention), relapse prevention, importance of follow up with psychiatrist and therapist, stay away from drugs/alcohol/smoking [facility] will accept pt whenever bed is available. Estimated Date of D/C: 09/02/18
[2018-09-02] MEDS: Divalproex 250 mg DR (BID formulation) PO SCH ×2 (08:33→17:17)
[2018-09-02] MEDS: Multivitamin With Minerals Tab PO SCH (08:34)
[2018-09-02] MEDS: INVEGA 6 MG PO SCH ×2 (09:02→21:27)
--- NOTE | 2018-09-02 15:12 | PCM.BM ---
<Christiane Amin Y - Last Filed: 09/02/18 15:12> Treatment Plan Problems - Problems identified on initial assessmt Auditory hallucinations Date Initiated: 08/24/18 Time Initiated: 23:45 Assessment reference: NA Status: Active visual hallucinatios Date Initiated: 08/24/18 Time Initiated: 23:45 Assessment reference: NA Status: Active Medication nonadherence Date Initiated: 08/24/18 Time Initiated: 23:45 Assessment reference: NA Status: Active Altered thought process Date Initiated: 08/24/18 Time Initiated: 23:45 Assessment reference: NA Status: Active Treatment assets and liabiliti Patient Assests: cooperative, self-reliant, ADL independent, physically healthy, negotiates basic needs - Milieu Protocol Milieu Narrative: Milieu/structure/supportive therapy Medical consult was done on the med floor pt is on antibiotics for sinusitis Invega 6mg po bid for psychosis, with the plan to increase it further, and give IM of invega sustenna 156mg zyprexa d/c depakote for mood stabilization 250mg po bid PRN meds (haldol/benadryl/ativan) trazodon 50mg po hs for insomnia SW consultation for discharge plan and social issues Family involvement Follow up on labs Will monitor closely Pt was educated about risk/benefits and alternatives of medications, coping strategies (safety plan, suicide prevention), relapse prevention, importance of follow up with psychiatrist and therapist, stay away from drugs/alcohol/smoking [facility] will accept pt whenever bed is available. Family Contact Family contact: Patient agrees to contact Family contact name: Anna Lloyd(mother) Family contacted how many times per week?: 2 Discharge/Continuing Care - Treatment Team Participation Patient/Family/SO Statement: Milieu/structure/supportive therapy Medical consult was done on the med floor pt is on antibiotics for sinusitis Invega 6mg po bid for psychosis, with the plan to increase it further, and give IM of invega sustenna 156mg zyprexa d/c depakote for mood stabilization 250mg po bid PRN meds (haldol/benadryl/ativan) trazodon 50mg po hs for insomnia SW consultation for discharge plan and social issues Family involvement Follow up on labs Will monitor closely Pt was educated about risk/benefits and alternatives of medications, coping strategies (safety plan, suicide prevention), relapse prevention, importance of follow up with psychiatrist and therapist, stay away from drugs/alcohol/smoking [facility] will accept pt whenever bed is available. Treatment Plan Review - Problem Auditory hallucinations Time Initiated: 23:45 visual hallucinatios Time Initiated: 23:45 Medication nonadherence Time Initiated: 23:45 Altered thought process Time Initiated: 23:45 <Jessica Fernandez - Last Filed: 09/02/18 16:57> - Diagnosis (1) Polysubstance abuse Status: Chronic Interventions: 09/02/18 16:54 patient reported that he does not want to take any drugs any longer, patient wants to go to gym, and stay sober. (2) Schizophrenia Status: Chronic Interventions: 09/02/18 16:55 Psychopharmacology/adjustment of medications as needed/ monitoring possible side effects patient does not want to be on injectable form of inVega thought process is mildly disorganized, but with much improvement pt is much calmer denied thoughts of harming himself or others Discussed with patient's mother today 09/02/2018, mother reported that her son presented "much better", mother wants to take patient back home after discharge
--- NOTE | 2018-09-02 17:04 | PCM.PYCHPN ---
Psychiatric Progress Note - Psychiatric Progress Note Patient seen today, length of contact: 30 minutes Patient Chief Complaint: "I am going to keep everything to myself, I want to stay sober, I want to go to gym" Problems Identified/Issues Discussed: Suicide/ homicide prevention, past psychiatric h/o, current psychiatric symptoms, medical problems, risk/benefits and alternatives of medications, medications compliance, coping strategies, substance abuse h/o, relapse pre vention, importance of follow up with psychiatrist and therapist, discharge plan. Medical Problems: pt was seen by medical team now pt is on abx Augmentin Diagnostic Results: Lab Results 08/25/18 08:00: TSH 3rd Generation 0.73 08/25/18 08:00: Fasting Glucose 90, Triglycerides 114, Cholesterol 132, LDL Cholesterol Direct 90, HDL Cholesterol 28 L Vital Signs Temp Pulse Pulse Resp BP 08/26/18 07:12 97.7 F 63 20 102/83 08/25/18 16:00 69 105/65 08/25/18 07:28 97.6 F 61 20 108/69 08/25/18 00:10 78 17 Temp Pulse Resp BP Pulse Ox 97.9 F 73 20 102/62 08/28/18 07:02 08/28/18 07:02 08/28/18 07:02 08/28/18 07:02 DSM 5 Symptoms Update: Patient is a single 33 year old male with history of schizophrenia, 4 prior admissions, most recently admitted [place] [facility] [place], pt was screened by [facility] wasn't committed, on 12/2015 and was involuntary transferred to [facility], noncompliant with meds and follow up appts. pt was initially admitted to the medical side for AMS, pt was unresponsive and foaming in the mouth, pt was in ER two days prior on 08/22/18 for agitated behavior, yelling and screaming in context of PCP induced psychosis, pt was d/c AMA. pt was seen by on the medical site pt presented to be disorganized, psychotic, was offered psych admission, pt was transferred to the unit on 08/24/18 uneventfully. pt requires further evaluation and stabilization and meds adjustment. pt was seen t the treatment team, pt presented to have some improvement with his symptoms. pt still has delusions, but better insight. pt wants to rescind 48hr notice, pt wants to complete his treatment here in [place]. [facility] screening process was counseled. This sports writer contacted patient mother Anna phone number [phone] as per mother patient presented much better, mother said that she feels comfortable to take patient back home, mother is willing to take patient on pill form of the medications, patient mother will visit patient either today or tomorrow and give us feedback. last week collaterals: as per Mother the only medication which help pt was invega, pt was attending DTP program at [facility], was on invega Sustenna, but she does not remember the dose, last time was in January 2018, she reported "Isaiah was doing very well, he was working". SW called to [facility] DTP, pt was on 156mg monthly. [facility] was called in for prescription of 6mg po bid, it was delivered, with the plan to give IM sustenna, but pt refused. overall pt is not agitated or aggressive, compliant with meds, AIMS 0, no EPS. Impression: He schizophrenia Rule out substance-induced psychosis Marijuana abuse Medication Change: Yes (invega increased to 6mg bid) Medical Record Reviewed: Yes Mental Status Examination - Cognitive Function Orientation: Person, Place, Situation, Time Memory: Impaired Attention: Poor Concentration: Poor Association: Loose Fund of Knowledge: Poor - Mood Mood: Neutral - Affect Affect: Constricted, Other (at times smiles inappropriately, labile, odd) - Formal Thought Process Formal Thought Process: Hallucinations, Delusions, Paranoia, Loosening of associations, Circumstantial, Thought Broadcasting - Suicidal Ideation Suicidal Ideation: No - Homicidal Ideation Homicidal Ideation: No Goal/Treatment Plan - Goal/Treatment Plan Need for Continued Stay: Remain at risks for inpatient hospitalization, Severe depression anxiety, Discharge may exacerbated symptoms, Severe functional imp airment Progress Toward Problem(s) and Goals/Treatment Plan: Milieu/structure/supportive therapy Medical consult was done on the med floor pt is on antibiotics for sinusitis Invega 6mg po bid for psychosis, with the plan to give IM of invega sustenna 156mg, but pt refused zyprexa d/c depakote for mood stabilization 250mg po bid PRN meds (haldol/benadryl/ativan) trazodon 50mg po hs for insomnia SW consultation for discharge plan and social issues Family involvement Follow up on labs Will monitor closely Pt was educated about risk/benefits and alternatives of medications, coping strategies (safety plan, suicide prevention), relapse prevention, importance of follow up with psychiatrist and therapist, stay away from drugs/alcohol/smoking [facility] will accept pt whenever bed is available. Estimated Date of D/C: 09/04/18
[2018-09-02] MEDS ORDERED: Vitamin A/D oint 60G TP PRN (18:23)
--- NOTE | 2018-09-02 20:40 | PCM.BM ---
Treatment Plan Problems - Problems identified on initial assessmt Auditory hallucinations Date Initiated: 08/24/18 Time Initiated: 23:45 Date resolved: 09/02/18 Assessment reference: NA Status: Active visual hallucinatios Date Initiated: 08/24/18 Time Initiated: 23:45 Date resolved: 09/02/18 Assessment reference: NA Status: Active Medication nonadherence Date Initiated: 08/24/18 Time Initiated: 23:45 Date resolved: 09/02/18 Assessment reference: NA Status: Active Altered thought process Date Initiated: 08/24/18 (09/02/18 REMAIN WITH FIXED DELUSIONS) Time Initiated: 23:45 Assessment reference: NA Status: Active Treatment assets and liabiliti Patient Assests: cooperative, self-reliant, ADL independent, physically healthy, negotiates basic needs - Milieu Protocol Milieu Narrative: Milieu/structure/supportive therapy Medical consult was done on the med floor pt is on antibiotics for sinusitis Invega 6mg po bid for psychosis, with the plan to give IM of invega sustenna 156mg, but pt refused zyprexa d/c depakote for mood stabilization 250mg po bid PRN meds (haldol/benadryl/ativan) trazodon 50mg po hs for insomnia SW consultation for discharge plan and social issues Family involvement Follow up on labs Will monitor closely Pt was educated about risk/benefits and alternatives of medications, coping strategies (safety plan, suicide prevention), relapse prevention, importance of follow up with psychiatrist and therapist, stay away from drugs/alcohol/smoking [facility] will accept pt whenever bed is available. Family Contact Family contact: Patient agrees to contact Family contact name: Anna Lloyd(mother) Family contacted how many times per week?: 2 Discharge/Continuing Care - Treatment Team Participation Patient/Family/SO Statement: Milieu/structure/supportive therapy Medical consult was done on the med floor pt is on antibiotics for sinusitis Invega 6mg po bid for psychosis, with the plan to give IM of invega sustenna 156mg, but pt refused zyprexa d/c depakote for mood stabilization 250mg po bid PRN meds (haldol/benadryl/ativan) trazodon 50mg po hs for insomnia SW consultation for discharge plan and social issues Family involvement Follow up on labs Will monitor closely Pt was educated about risk/benefits and alternatives of medications, coping strategies (safety plan, suicide prevention), relapse prevention, importance of follow up with psychiatrist and therapist, stay away from drugs/alcohol/smoking [facility] will accept pt whenever bed is available. Treatment Plan Review - Problem Auditory hallucinations Time Initiated: 23:45 visual hallucinatios Time Initiated: :45 Medication nonadherence Time Initiated: :45 Altered thought process Time Initiated: 23:45
[2018-09-03] MEDS: Divalproex 250 mg DR (BID formulation) PO SCH ×2 (09:05→16:49)
[2018-09-03] MEDS: INVEGA 6 MG PO SCH ×2 (09:06→21:06)
[2018-09-03] MEDS: Multivitamin With Minerals Tab PO SCH (09:06)
[2018-09-03] MEDS: Multivitamin Therapeutic Tab PO SCH (09:09)
--- NOTE | 2018-09-03 09:50 | PCM.PYCHPN ---
Psychiatric Progress Note - Psychiatric Progress Note Patient seen today, length of contact: 30 minutes Problems Identified/Issues Discussed: I reviewed recent notes and met with patient in the dayroom. He appears well groomed, pleasant and oriented x3. I am familiar with patient from our inter views last weekend and he is improved. He is more coherent and much less disorganized. He is still oddly related and scattered during our interactions but this seems more awkward than bizarre. Patient reports feeling improved and denies any hallucinations. Aware that PCP worsens these issues and commits to abstain from this drug, however this is questionable. Patient indicates that he feels "all right" and denies SI/HI. Patient is tolerating his medications and denies any side effects or concerns in this regard. Delusions were not elicited this morning. Staff notes indicates that patient has been pleasant and calmer without agitation or aggression. He still keeps to himself and responds to internal stimuli sometimes. He attends group for short periods of time. Patient retracted 48 hour notice and has been compliant with PO medications however still refuses IM Invega. . Diagnostic Results: schizophrenia Rule out substance-induced psychosis Marijuana abuse Medication Change: No ( ) Medical Record Reviewed: Yes Mental Status Examination - Cognitive Function Orientation: Person, Place, Situation, Time Memory: Impaired Attention: WNL Concentration: Poor Association: Loose Fund of Knowledge: Poor - Mood Mood: Neutral - Affect Affect: Constricted, Other (at times smiles inappropriately, labile, odd) - Formal Thought Process Formal Thought Process: Hallucinations (denies), Delusions (not elicited today), Paranoia (improved), Loosening of associations (improved), Circumstantial, Thought Broadcasting (not elicited today) - Suicidal Ideation Suicidal Ideation: No - Homicidal Ideation Homicidal Ideation: No Goal/Treatment Plan - Goal/Treatment Plan Need for Continued Stay: Remain at risks for inpatient hospitalization, Severe depression anxiety, Discharge may exacerbated symptoms, Severe functional impairment Progress Toward Problem(s) and Goals/Treatment Plan: * c/w current tx and plan * No new lab results thus far * Vitals reviewed and noted below: Selected Entries 09/01/18 09/02/18 09/02/18 07:00 07:04 16:00 Temperature 97.7 F Pulse Rate 78 92 H Respiratory 20 Rate Blood Pressure 88/52 L 122/78 Estimated Date of D/C: 09/04/18
[2018-09-04 07:10] VITALS: BP 116/81; PULSE 83; TEMP 98.4
[2018-09-04] MEDS: Divalproex 250 mg DR (BID formulation) PO SCH (08:06)
[2018-09-04] MEDS: Multivitamin With Minerals Tab PO SCH (08:06)
--- NOTE | 2018-09-04 08:58 | PCM.PYCHDC ---
Mental Status Examination - Mental Status Examination Orientation: Person, Place, Situation Memory: Intact Mood: Neutral Affect: Broad Speech: Appropriate Attention: WNL Concentration: WNL Association: WNL Fund of Knowledge: Poor Formal Thought Process: No Impairment Description of patient's judgement and insight: Much improved insight and judgement, fair at time of d/c Psychotic Thoughts and Behaviors: Patient denies any perceptual disturbance including hallucinations or paranoia. Delusions were not elicited. Suicidal Ideation: No Current Homicidal Ideation?: No Discharge Summary - Discharge Note Reason for Hospitalization: Patient is a single 33 year old male with history of schizophrenia, 4 prior admissions, most recently admitted to [facility] in March 2018, pt was screened by [facility] wasn't committed, on 12/2015 and was involuntary transferred to [facility], noncompliant with meds and follow up appts. pt was initially admitted to the medical side for AMS, pt was unresponsive and foaming in the mouth, pt was in ER two days prior on 08/22/18 for agitated behavior, yelling and screaming in context of PCP induced psychosis, pt was d/c AMA. pt was seen by on the medical site pt presented to be disorganized, psychotic, was offered psych admission, pt was transferred to the unit on 08/24/18 uneventfully. pt requires further evaluation and stabilization and meds adjustment. Psychiatric History (includes Medical, Family, Personal Hx): see HPI Laboratory Data: Laboratory Tests 08/25/18 08/25/18 08:00 08:00 Fasting Glucose 90 Triglycerides 114 Cholesterol 132 LDL Cholesterol Direct 90 HDL Cholesterol 28 L TSH 3rd Generation 0.73 Consultations:: List each consultation separately and include: 1. Reason for request. 2. Findings. 3. Follow-up Consultations: NONE. PATIENT WAS MEDICALLY CLEARED AFTER HE WAS HOSPITALIZED ON THE MEDICAL FLOOR X1 DAY 08/24/18 Summary of Hospital Course include:: 1. Description of specific treatment plan utilized for patients during their course of treatmen. 2. Summarize the time- course for resolution of acute symptoms and/or regressed behaviors. 3. Describe issues identified and worked on during hospitalization. 4. Describe medication utilized. 5. Describe medical problems identified and treated. 6. Reassessment of suicide risk Summary of Hospital Course: DR. STORM'S PROGRESS NOTE 09/02/18 Patient is a single 33 year old male with history of schizophrenia, 4 prior admissions, most recently admitted to [facility] in March 2018, pt was screened by [facility] wasn't committed, on 12/2015 and was involuntary transferred to [facility], noncompliant with meds and follow up appts. pt was initially admitted to the medical side for AMS, pt was unresponsive and foaming in the mouth, pt was in ER two days prior on 08/22/18 for agitated behavior, yelling and screaming in context of PCP induced psychosis, pt was d/c AMA. pt was seen by on the medical site pt presented to be disorganized, psychotic, was offered psych admission, pt was transferred to the unit on 08/24/18 uneventfully. pt requires further evaluation and stabilization and meds adjustment. pt was seen t the treatment team, pt presented to have some improvement with his symptoms. pt still has delusions, but better insight. pt wants to rescind 48hr notice, pt wants to complete his treatment here in [place]. [facility] screening process was counseled. This process description writer contacted patient mother Anna phone number [phone] as per mother patient presented much better, mother said that she feels comfortable to take patient back home, mother is willing to take patient on pill form of the medications, patient mother will visit patient either today or tomorrow and give us feedback. last week collaterals: as per Mother the only medication which help pt was invega, pt was attending DTP program at [facility], was on invega Sustenna, but she does not remember the dose, last time was in January 2018, she reported "Isaiah was doing very well, he was working". SW called to [facility] DTP, pt was on 156mg monthly. [facility] pharmacy was called in for prescription of 6mg po bid, it was delivered, with the plan to give IM sustenna, but pt refused. overall pt is not agitated or aggressive, compliant with meds, AIMS 0, no EPS. DR. RIVERO'S PROGRESS NOTE 09/03/18 I reviewed recent notes and met with patient in the dayroom. He appears well groomed, pleasant and oriented x3. I am familiar with patient from our interviews last weekend and he is improved. He is more coherent and much less disorganized. He is still oddly related and scattered during our interactions but this seems more awkward than bizarre. Patient reports feeling improved and denies any hallucinations. Aware that PCP worsens these issues and commits to abstain from this drug, however this is questionable. Patient indicates that he feels "all right" and denies SI/HI. Patient is tolerating his medications and denies any side effects or concerns in this regard. Delusions were not elicited this morning. Staff notes indicates that patient has been pleasant and calmer without agitation or aggression. He still keeps to himself and responds to internal stimuli sometimes. He attends group for short periods of time. DR. RIVERO'S DISCHARGE NOTE 09/04/18 I interviewed patient in the dayroom to assess continued stability for discharge. Patient is alert and well-oriented to month, year and circumstances. Eye contact is good. Patient feels improved and denies any suicidal thoughts or thoughts to harm others. Affect is calm and appropriately reactive and much more related. Patient denies hallucinations and is not responding to internal stimuli.He denies paranoia. Thought process is clear and much improved since admission. Patient feels comfortable with discharge today and denies any new concerns. Agreed to Invega Sustenna 234 mg IM x1 today prior to discharge. This provider phoned [facility] [phone] to prior authorize Invega Sustenna 234 mg IM on 09/04/18. Total time pre-authorizing = 7 minutes. I contacted [facility] [phone] and informed them of pre-authorization starting with today's date 09/04/18. Denies acute discomfort or pain. Tolerating medications and denies any issues with them. Delusions and paranoia were not elicited on day of discharge. - Final Diagnosis (DSM 5) Condition upon Discharge: FAIR DSM 5: Schizophrenia Substance-induced psychosis, resolved Marijuana abuse Disposition: HOME/ ROUTINE Follow-up Treatment Plan: * Please refer to SW note for full after care recommendations * I phoned [facility] [phone] and authorized 15 day supply + 1Rf of the following medications: --Trazodone 50 mg HS --Cogentin 1 mg po bid --depakote 250 mg po bid --Invega 6 mg AM and 6 mg HS changed to Risperdal 2 mg AM and 2 mg HS after this provider spoke with pharmacist at [facility] and was informed that Invega PO w as DENIED COVERAGE. --Nicoderm CQ 7 mg patch to be applied daily Patient to receive 234 mg IM of invega sustenna on day of discharge. Patient then to receive 156 mg IM of sustenna in 7 days for the 2nd dose of initiation protocol. Prescriptions/Medication Reconciliation: Benztropine [Cogentin] 1 mg PO BID #30 tab Divalproex [Depakote DR (*BID*)] 250 mg PO BID #30 tcp Home Med 1 unit PO AMHS #30 ea Nicotine 7 mg/24 hr [Nicoderm CQ] 1 patch TD DAILY #14 patch traZODone [Desyrel] 50 mg PO HS #30 tab - Smoking Cessation Smoking Cessation Medication prescribed: Yes - Antipsychotic Medications Pt discharged on 2 or more routine antipsychotic medications: No
[2018-09-04] MEDS: INVEGA 6 MG PO SCH (12:14)
== END 2018-09-04 13:00 | disposition home or self-care (01) | DRG 750 ==
LOC: PSYC 21:56
PROVIDERS: ADMIT Psychiatry & Neurology Psychiatry; ATTEND Psychiatry & Neurology Psychiatry
DX: F20.9 Schizophrenia, unspecified (principal); F11.259 Opioid dependence with opioid-induced psychotic disorder, unspecified; F12.159 Cannabis abuse with psychotic disorder, unspecified; F15.159 Other stimulant abuse with stimulant-induced psychotic disorder, unspecified; F16.90 Hallucinogen use, unspecified, uncomplicated; F17.210 Nicotine dependence, cigarettes, uncomplicated; G47.00 Insomnia, unspecified; Z91.14 Patient's other noncompliance with medication regimen; Z91.19 Patient's noncompliance with other medical treatment and regimen

== ENCOUNTER 2018-11-01 18:49 | Inpatient (IN) | payer OTHER ==
[2018-11-01 18:50] VITALS: BMI 25.0
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
[2018-11-01 20:32] LABS: BASO # 0.03 K/mm3 (0.0-2.0); BASO % 0.2 % (0.0-3.0); EOS # 0.2 (0.0-0.7); EOS % 1.2 % (1.5-5.0); GRAN # 9.86 (1.4-6.5); GRAN % 72.6 % (50.0-68.0); HEMOGLOBIN 15.8 g/dL (14.0-18.0); LYMPH # 2.9 (1.2-3.4); LYMPH % 21.4 % (22.0-35.0); MEAN CELL VOLUME 84.2 fl (80.0-105.0); MEAN CORPUSCULAR HEMOGLOBIN 28.8 pg (25.0-35.0); MEAN CORPUSCULAR HGB CONC 34.2 g/dl (31.0-37.0); MEAN PLATELET VOLUME 10.8 fl (7.0-11.0); MONO # 0.6 (0.1-0.6); MONO % 4.6 % (1.0-6.0); RBC 5.49 10^6/uL (3.5-6.1); RED CELL DISTRIBUTION WIDTH 13.4 % (11.5-14.5); WHITE BLOOD COUNT 13.6 10^3/uL (4.5-11.0)
[2018-11-01 20:46] LABS: ALB/GLOB RATIO 1.5 (1.1-1.8); ALBUMIN 5.1 g/dL (3.0-4.8); ALT/SGPT 38 U/L (7-56); AST/SGOT 37 U/L (17-59); BLOOD UREA NITROGEN 14 mg/dL (7-21); CALCIUM 10.3 mg/dL (8.4-10.5); GFR NON-AFRICAN AMERICAN > 60
[2018-11-01 20:47] LABS: ACETAMINOPHEN < 10.0 ug/ml (10.0-20.0); SALICYLATE < 1 mg/dL (2.0-20.0)
[2018-11-01 21:33] LABS: URINE BILIRUBIN NEGATIVE (NEGATIVE); URINE BLOOD NEGATIVE (NEGATIVE); URINE GLUCOSE (UA) NEGATIVE (NEGATIVE); URINE LEUKOCYTE ESTERASE NEGATIVE Leu/uL (NEGATIVE); URINE PROTEIN NEGATIVE mg/dL (<30 mg/dL); URINE UROBILINOGEN 0.2 E.U./dL (<1 E.U./dL)
[2018-11-01 21:34] LABS: URINE APPEARANCE CLEAR (CLEAR); URINE COLOR LIGHT YELLOW (YELLOW)
[2018-11-01 22:11] LABS: BARBITURATES, UR NEGATIVE (NEGATIVE); BENZODIAZEPINES, UR NEGATIVE (NEGATIVE); OPIATES, UR NEGATIVE (NEGATIVE); PHENCYCLIDINE, UR POSITIVE (NEGATIVE)
[2018-11-02 05:29] VITALS: O2SAT 98
--- NOTE | 2018-11-02 06:44 | PCM.BM ---
<Neda Contreras - Last Filed: 11/02/18 06:40> Treatment Plan Problems - Problems identified on initial assessmt ALTERED THOUGHT PROCESS Date Initiated: 11/02/18 Time Initiated: 06:00 Assessment reference: NA Status: Active Priority: 1 AUDITORY HALLUCINATION Date Initiated: 11/02/18 Time Initiated: 06:00 Assessment reference: NA Status: Active Priority: 2 MEDICAL NON COMPLIANCE Date Initiated: 11/02/18 Time Initiated: 06:00 Assessment reference: NA Status: Active Priority: 3 Treatment assets and liabiliti Patient Assests: cooperative, self-reliant, ADL independent, physically healthy, negotiates basic needs Patient Liabilities: financial problems, substance abuse - Milieu Protocol Maintain good personal hygiene: every other day Encourage regular showers, every shift Remind patient to perform daily oral care, every shift Assist patient to perform ADL's Maintain personal safety: every shift Educate patient to report safety concerns to staff, every shift Monitor environment for contraband/sharps Medication safety: Monitor for expected outcome, potential side effects: every shift, Assess barriers to learning: every shift, Assess readiness for medication education: every shift Family Contact Family involvement: Family/SO is involved Family contact: Patient agrees to contact Discharge/Continuing Care - Education Needs Education Needs: Patient Medication, Patient Diagnosis/Disease Process, Patient Coping Skills, Patient Activities of Daily Living, Patient Health Practices/Safety - Discharge Discharge Criteria: Tolerates medication w/o severe side effects, Free of paranoid thoughts, Normal sleep pattern, Ability to care for self <Christiane Amin Y - Last Filed: 11/02/18 11:45> Family Contact Family contact: Patient agrees to contact Family contact name: Anna Lloyd(mother) Family contacted how many times per week?: 2 - Outside Agency Agency 1 Care involvment: Following patient during stay, Information-sharing Agency contact name: [facility], Intensive Outpatient Program <Jessica Fernandez - Last Filed: 11/02/18 13:48> - Diagnosis (1) Stimulant use disorder Status: Acute Interventions: 11/02/18 13:47 Maintaining sobriety Relapse prevention Possible rehabilitation Motivational interviewing 12-step programs: AA meetings (2) Schizophrenia Status: Chronic Interventions: 11/02/18 13:48 Psychoeducation/psychotherapy Psychopharmacology/adjustment of medications as needed/ monitoring possible side effects Evaluate pt on daily basis Compliance with medications and follow up appointments Long acting medication if pt is noncompliant with pill form Suicide and homicide risk assessment and prevention, coping strategies, safety plan Relapse prevention Reduction of symptoms Improve functional status Possible assertive community treatment Cognitive behavioral therapy Family involvement Possible social skill training as outpatient
[2018-11-02] MEDS ORDERED: Alum-Mag Hydrox-Simethicone Susp (30 mL) PO PRN (08:32)
[2018-11-02] MEDS ORDERED: Magnesium Hydroxide Susp 30 ml UD PO PRN (08:32)
--- NOTE | 2018-11-02 09:25 | RAD ---
Date of service: 11/01/2018 HISTORY: overdose COMPARISON: 08/22/2018 FINDINGS: LUNGS: No active pulmonary disease. PLEURA: No significant pleural effusion identified, no pneumothorax apparent. CARDIOVASCULAR: No aortic atherosclerotic calcification present. Normal cardiac size. No pulmonary vascular congestion. OSSEOUS STRUCTURES: No significant abnormalities. VISUALIZED UPPER ABDOMEN: Normal. OTHER FINDINGS: None. IMPRESSION: No active disease.
--- NOTE | 2018-11-02 10:34 | CARD ---
APPROVED REPORT Date of service: 11/01/2018 EKG Measurement Heart [id number] <Conclusion> Normal sinus rhythm Normal ECG
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
[2018-11-02] MEDS: Divalproex 500 mg DR(BID formulation) PO SCH (21:13)
[2018-11-03 06:56] LABS: BASO # 0.03 K/mm3 (0.0-2.0); BASO % 0.3 % (0.0-3.0); EOS # 0.4 (0.0-0.7); EOS % 3.6 % (1.5-5.0); GRAN # 5.85 (1.4-6.5); GRAN % 54.4 % (50.0-68.0); HEMOGLOBIN 14.3 g/dL (14.0-18.0); LYMPH # 3.9 (1.2-3.4); LYMPH % 36.1 % (22.0-35.0); MEAN CELL VOLUME 84.8 fl (80.0-105.0); MEAN CORPUSCULAR HEMOGLOBIN 27.9 pg (25.0-35.0); MEAN CORPUSCULAR HGB CONC 32.9 g/dl (31.0-37.0); MEAN PLATELET VOLUME 11.8 fl (7.0-11.0); MONO # 0.6 (0.1-0.6); MONO % 5.6 % (1.0-6.0); RBC 5.12 10^6/uL (3.5-6.1); RED CELL DISTRIBUTION WIDTH 13.5 % (11.5-14.5); WHITE BLOOD COUNT 10.8 10^3/uL (4.5-11.0)
[2018-11-03 07:04] LABS: HDL CHOLESTEROL 26 mg/dL (29-60)
[2018-11-03 07:15] LABS: LDL CHOLESTEROL 105 mg/dL (0-129)
[2018-11-03 07:17] LABS: FREE T4 0.99 ng/dL (0.78-2.19)
[2018-11-03] MEDS: Divalproex 500 mg DR(BID formulation) PO SCH ×2 (09:14→21:24)
--- NOTE | 2018-11-03 16:21 | PCM.PYCHPN ---
Psychiatric Progress Note - Psychiatric Progress Note Patient seen today, length of contact: 30 minutes Patient Chief Complaint: "I feel all right" Problems Identified/Issues Discussed: Suicide/ homicide prevention, past psychiatric h/o, current psychiatric symptoms, medical problems, risk/benefits and alternatives of medications, medications compliance, coping strategies, substance abuse h/o, relapse prevention, importance of follow up with psychiatrist and therapist, discharge plan. Medical Problems: See HPI Diagnostic Results: 11/03/18 06:15 11/01/18 20:15 Lab Results 11/03/18 06:15: WBC 10.8 D, RBC 5.12, Hgb 14.3, Hct 43.4, MCV 84.8, MCH 27.9, MCHC 32.9, RDW 13.5, Plt Count 186, MPV 11.8 H, Gran % 54.4, Lymph % (Auto) 36.1 H, Ida % (Auto) 5.6, Eos % (Auto) 3.6, Baso % (Auto) 0.3, Gran # 5.85, Lymph # (Auto) 3.9 H, Ida # (Auto) 0.6, Eos # (Auto) 0.4, Baso # (Auto) 0.03 11/03/18 06:15: Valproic Acid 36 L 11/03/18 06:15: Triglycerides 102, Cholesterol 143, LDL Cholesterol Direct 105, HDL Cholesterol 26 L 11/03/18 06:15: Free T4 0.99, TSH 3rd Generation 1.63 11/01/18 21:26: Urine Opiates Screen Negative, Urine Methadone Screen Negative, Ur Barbiturates Screen Negative, Ur Phencyclidine Scrn Positive H, Ur Amphetamines Screen Negative, U Benzodiazepines Scrn Negative, U Oth Cocaine Metabols Negative, U Cannabinoids Screen Negative 11/01/18 21:26: Urine Color Light yellow, Urine Appearance Clear, Urine pH 6.0, Ur Specific [place] 1.010, Urine Protein Negative, Urine Glucose (UA) Negative, Urine Ketones Negative, Urine Blood Negative, Urine Nitrate Negative, Urine Bilirubin Negative, Urine Urobilinogen 0.2, Ur Leukocyte Esterase Negative 11/01/18 20:15: Alcohol, Quantitative < 10 11/01/18 20:15: Salicylates < 1 L, Acetaminophen < 10.0 L 11/01/18 20:15: Sodium 143, Potassium 4.1, Chloride 104, Carbon Dioxide 26, Anion Gap 17, BUN 14, Creatinine 1.1, Est GFR ( Amer) > 60, Est GFR (Non- Af Amer) > 60, Random Glucose 91, Calcium 10.3, Magnesium 2.2, Total Bilirubin 0.3, AST 37, ALT 38, Alkaline Phosphatase 108, Total Creatine Kinase 320 H, CK- MB (CK-2) 1.0, CK-MB (CK-2) % Cancelled, Total Protein 8.5 H, Albumin 5.1 H, Globulin 3.4, Albumin/Globulin Ratio 1.5 11/01/18 20:15: WBC 13.6 H, RBC 5.49, Hgb 15.8 D, Hct 46.2, MCV 84.2, MCH 28.8, MCHC 34.2, RDW 13.4, Plt Count 192, MPV 10.8, Gran % 72.6 H, Lymph % (Auto) 21.4 L, Ida % (Auto) 4.6, Eos % (Auto) 1.2 L, Baso % (Auto) 0.2, Gran # 9.86 H, Lymph # (Auto) 2.9, Ida # (Auto) 0.6, Eos # (Auto) 0.2, Baso # (Auto) 0.03 Vital Signs Temp Pulse Resp BP Pulse Ox 11/03/18 07:33 97.6 F 71 18 89/57 L 11/02/18 15:00 97.2 F L 86 17 125/80 11/02/18 06:19 98.5 F 75 20 123/80 11/02/18 05:30 72 18 112/80 98 11/02/18 05:15 98.8 F 72 18 112/80 98 11/01/18 20:00 98.7 F 91 H 18 130/82 97 DSM 5 Symptoms Update: Shortly patient is 33 y/o -[place] male with reported history of schizophrenia, history of polysubstance abuse and dependence, patient has multiple admissions to the psychiatric inpatient unit, patient was brought in to the emergency room after patient was found to be unresponsive in the community after ingesting PCP, in the emergency room patient presented in a catatonic stage, wanting to internal stimuli, patient required further evaluation and stabilization and medication adjustment. Please see emergency room notes for more detailed information. Patient was seen and examined today at the TV room, patient presented with improved personal hygiene, patient presented to be calmer, thought process still disorganized, but no agitation or aggression. Patient submitted 48-hour notice yesterday, requesting discharge, after detailed discussion of treatment plan today patient is willing to continue treatment, patient rescinded 48-hour notice. Patient was educated about her treatment plan, patient was on 3 antipsychotic medications, this pattern chart writer explained that at this point there is no need for patient to be on 3 antipsychotic medication and subtherapeutic doses, patient verbalized understanding, patient is willing to have injectable form Invega, willing to continue Seroquel. sheet metal layout worker contacted [facility] day treatment program, waiting for callback, patient does not remember when was the last injection given to him. As per staff patient is, but visible in the unit, no agitation or aggression. As per geriatric social worker patient was verbalizing thoughts of harming himself, was very tearful, reports that she was coerced, please see geriatric social worker notes for more detailed information. So far patient tolerates medications well, no side effects observed or reported, aims 0, no EPS. Impression: Schizophrenia Stimulant use disorder Substance-induced psychosis Medication Change: Yes Medical Record Reviewed: Yes Consults ordered or reviewed: Patient was seen by medical team in the emergency room, no major medical issues. Mental Status Examination - Cognitive Function Orientation: Person, Place, Situation Attention: Poor Concentration: Poor Association: Loose Fund of Knowledge: Poor - Mood Mood: Depressed, Anxious, Other (Patient denied being depressed) - Affect Affect: Flat - Formal Thought Process Formal Thought Process: Paranoia, Other (Appears to be internally preoccupied, responding to internal stimuli, but denied hearing voices denied seeing things) - Suicidal Ideation Suicidal Ideation: Yes Plan: Patient adamantly denied intent or plan to kill himself - Homicidal Ideation Homicidal Ideation: No Goal/Treatment Plan - Goal/Treatment Plan Need for Continued Stay: Remain at risks for inpatient hospitalization, Severe depression anxiety, Discharge may exacerbated symptoms, Severe functional impairment Progress Toward Problem(s) and Goals/Treatment Plan: Milieu/structure/supportive therapy Medical consult was called for leukocytosis CBC was ordered for the morning time SW consultation for discharge plan and social issues Med management Patient's pharmacy was contacted [facility] [phone] Paliperidone extended release 6 mg twice a day filled in October 22, 2018, it is nonformulary in the hospital Seroquel 100 mg twice a day for psychosis Depakote 500 mg twice a day for mood stabilization Cogentin 2 mg daily for possible EPS Haloperidol was discontinued, only if needed Pharmacy could not find a record for Invega Sustenna, geriatric social worker was kindly asked to call to [facility] to find out last dose of Invega Sustenna given. Collateral from family Patient submitted 48-hour notice, but rescinded Follow up on labs Will monitor closely Pt was educated about risk/benefits and alternatives of medications, coping strategies (safety plan, suicide prevention), relapse prevention, importance of follow up with psychiatrist and therapist, stay away from drugs/alcohol/smoking Estimated Date of D/C: 11/06/18
[2018-11-04 07:19] VITALS: RESP 20
[2018-11-04] MEDS: Divalproex 500 mg DR(BID formulation) PO SCH ×2 (09:35→21:08)
--- NOTE | 2018-11-04 16:30 | PCM.PYCHPN ---
Psychiatric Progress Note - Psychiatric Progress Note Patient seen today, length of contact: 30 minutes Patient Chief Complaint: "I feel all right" Problems Identified/Issues Discussed: Suicide/ homicide prevention, past psychiatric h/o, current psychiatric symptoms, medical problems, risk/benefits and alternatives of medications, medications compliance, coping strategies, substance abuse h/o, relapse prevention, importance of follow up with psychiatrist and therapist, discharge plan. Medical Problems: See HPI Diagnostic Results: 11/03/18 06:15 11/01/18 20:15 Lab Results 11/03/18 06:15: WBC 10.8 D, RBC 5.12, Hgb 14.3, Hct 43.4, MCV 84.8, MCH 27.9, MCHC 32.9, RDW 13.5, Plt Count 186, MPV 11.8 H, Gran % 54.4, Lymph % (Auto) 36.1 H, [place] % (Auto) 5.6, Eos % (Auto) 3.6, Baso % (Auto) 0.3, Gran # 5.85, Lymph # (Auto) 3.9 H, Douglas # (Auto) 0.6, Eos # (Auto) 0.4, Baso # (Auto) 0.03 11/03/18 06:15: Valproic Acid 36 L 11/03/18 06:15: Triglycerides 102, Cholesterol 143, LDL Cholesterol Direct 105, HDL Cholesterol 26 L 11/03/18 06:15: Free T4 0.99, TSH 3rd Generation 1.63 11/01/18 21:26: Urine Opiates Screen Negative, Urine Methadone Screen Negative, Ur Barbiturates Screen Negative, Ur Phencyclidine Scrn Positive H, Ur Amphetamines Screen Negative, U Benzodiazepines Scrn Negative, U Oth Cocaine Metabols Negative, U Cannabinoids Screen Negative 11/01/18 21:26: Urine Color Light yellow, Urine Appearance Clear, Urine pH 6.0, Ur Specific [place] 1.010, Urine Protein Negative, Urine Glucose (UA) Negative, Urine Ketones Negative, Urine Blood Negative, Urine Nitrate Negative, Urine Bilirubin Negative, Urine Urobilinogen 0.2, Ur Leukocyte Esterase Negative 11/01/18 20:15: Alcohol, Quantitative < 10 11/01/18 20:15: Salicylates < 1 L, Acetaminophen < 10.0 L 11/01/18 20:15: Sodium 143, Potassium 4.1, Chloride 104, Carbon Dioxide 26, Anion Gap 17, BUN 14, Creatinine 1.1, Est GFR ( Amer) > 60, Est GFR (Non- Af Amer) > 60, Random Glucose 91, Calcium 10.3, Magnesium 2.2, Total Bilirubin 0.3, AST 37, ALT 38, Alkaline Phosphatase 108, Total Creatine Kinase 320 H, CK- MB (CK-2) 1.0, CK-MB (CK-2) % Cancelled, Total Protein 8.5 H, Albumin 5.1 H, Globulin 3.4, Albumin/Globulin Ratio 1.5 11/01/18 20:15: WBC 13.6 H, RBC 5.49, Hgb 15.8 D, Hct 46.2, MCV 84.2, MCH 28.8, MCHC 34.2, RDW 13.4, Plt Count 192, MPV 10.8, Gran % 72.6 H, Lymph % (Auto) 21.4 L, Douglas % (Auto) 4.6, Eos % (Auto) 1.2 L, Baso % (Auto) 0.2, Gran # 9.86 H, Lymph # (Auto) 2.9, Douglas # (Auto) 0.6, Eos # (Auto) 0.2, Baso # (Auto) 0.03 Vital Signs Temp Pulse Resp BP Pulse Ox 11/03/18 07:33 97.6 F 71 18 89/57 L 11/02/18 15:00 97.2 F L 86 17 125/80 11/02/18 06:19 98.5 F 75 20 123/80 11/02/18 05:30 72 18 112/80 98 11/02/18 05:15 98.8 F 72 18 112/80 98 11/01/18 20:00 98.7 F 91 H 18 130/82 97 DSM 5 Symptoms Update: Shortly patient is 33 y/o -[place] male with reported history of schizophrenia, history of polysubstance abuse and dependence, patient has multiple admissions to the psychiatric inpatient unit, patient was brought in to the emergency room after patient was found to be unresponsive in the community after ingesting PCP, in the emergency room patient presented in a catatonic stage, wanting to internal stimuli, patient required further evaluation and stabilization and medication adjustment. Please see emergency room notes for more detailed information. Patient was seen and examined today in his room with mental health worker, patient presented with improved personal hygiene, patient presented to be calmer, thought process still disorganized, but no agitation or aggression. Patient was educated about her treatment plan, patient was on 3 antipsychotic medications, this auto service writer explained that at this point there is no need for patient to be on 3 antipsychotic medication and subtherapeutic doses, patient verbalized understanding, patient is willing to have injectable form Invega, patient's next Invega(156mg) injection: 11/09/18, as per [facility] pt pt is compliant with f/u appt, pt will f/u with them on friday and will have injection. Patient is willing to continue Seroquel. As per staff patient is calm, visible in the unit, no agitation or aggression. As per rn social services patient was verbalizing thoughts of harming himself 11/03/18, was very tearful, reports that he was cursed, please see rn social services notes for more detailed information. So far patient tolerates medications well, no side effects observed or reported, aims 0, no EPS. Impression: Schizophrenia Stimulant use disorder Substance-induced psychosis SW contacted Gabby, Career Services Representative at [facility], Intensive Day Treatment Program. As per Gabby, patient allowed to return back to the program. Patient reported to attend program daily. Gabby reports speaking to pt's mother and discussed having a Family Meeting when pt returns back to the program. Gabby suspects patient has been using drugs, as pt refused having a drug test. MITCHEL informed Gabby, patient will be d/ on Friday. Medication Change: Yes Medical Record Reviewed: Yes Consults ordered or reviewed: Patient was seen by medical team in the emergency room, no major medical issues. Mental Status Examination - Cognitive Function Orientation: Person, Place, Situation Attention: Poor (some improvements) Concentration: Poor (some improvements) Association: Loose (some improvements) Fund of Knowledge: Poor - Mood Mood: Depressed, Anxious, Other (Patient denied being depressed) - Affect Affect: Flat - Formal Thought Process Formal Thought Process: Paranoia, Other (Appears to be internally preoccupied, responding to internal stimuli, but denied hearing voices denied seeing things) - Suicidal Ideation Suicidal Ideation: No Plan: denied today - Homicidal Ideation Homicidal Ideation: No Goal/Treatment Plan - Goal/Treatment Plan Need for Continued Stay: Remain at risks for inpatient hospitalization, Severe depression anxiety, Discharge may exacerbated symptoms, Severe functional impairment Progress Toward Problem(s) and Goals/Treatment Plan: Milieu/structure/supportive therapy Medical consult was called for leukocytosis CBC was ordered for the morning time consultation for discharge plan and social issues Med management Patient's pharmacy was contacted [facility] [phone] Paliperidone extended release 6 mg twice a day filled in October 22, 2018, it is nonformulary in the hospital, pt is already on injectable form Seroquel 100 mg twice a day for psychosis Depakote 500 mg twice a day for mood stabilization Cogentin 2 mg daily for possible EPS Haloperidol was discontinued, only if needed Invega Sustenna is due is on Friday11/09/18 Collateral from family Patient submitted 48-hour notice, but rescinded Follow up on labs Will monitor closely Pt was educated about risk/benefits and alternatives of medications, coping strategies (safety plan, suicide prevention), relapse prevention, importance of follow up with psychiatrist and therapist, stay away from drugs/alcohol/smoking Estimated Date of D/C: 11/06/18
[2018-11-05 07:36] VITALS: TEMP 97.8
[2018-11-05] MEDS: Divalproex 500 mg DR(BID formulation) PO SCH ×2 (10:49→21:05)
--- NOTE | 2018-11-05 14:59 | PCM.PYCHPN ---
Psychiatric Progress Note - Psychiatric Progress Note Patient seen today, length of contact: 30 minutes Patient Chief Complaint: "I feel all right" Problems Identified/Issues Discussed: Suicide/ homicide prevention, past psychiatric h/o, current psychiatric symptoms, medical problems, risk/benefits and alternatives of medications, medications compliance, coping strategies, substance abuse h/o, relapse prevention, importance of follow up with psychiatrist and therapist, discharge plan. Medical Problems: See HPI Diagnostic Results: 11/03/18 06:15 11/01/18 20:15 Lab Results 11/03/18 06:15: WBC 10.8 D, RBC 5.12, Hgb 14.3, Hct 43.4, MCV 84.8, MCH 27.9, MCHC 32.9, RDW 13.5, Plt Count 186, MPV 11.8 H, Gran % 54.4, Lymph % (Auto) 36.1 H, [place] % (Auto) 5.6, Eos % (Auto) 3.6, Baso % (Auto) 0.3, Gran # 5.85, Lymph # (Auto) 3.9 H, [place] # (Auto) 0.6, Eos # (Auto) 0.4, Baso # (Auto) 0.03 11/03/18 06:15: Valproic Acid 36 L 11/03/18 06:15: Triglycerides 102, Cholesterol 143, LDL Cholesterol Direct 105, HDL Cholesterol 26 L 11/03/18 06:15: Free T4 0.99, TSH 3rd Generation 1.63 11/01/18 21:26: Urine Opiates Screen Negative, Urine Methadone Screen Negative, Ur Barbiturates Screen Negative, Ur Phencyclidine Scrn Positive H, Ur Amphetamines Screen Negative, U Benzodiazepines Scrn Negative, U Oth Cocaine Metabols Negative, U Cannabinoids Screen Negative 11/01/18 21:26: Urine Color Light yellow, Urine Appearance Clear, Urine pH 6.0, Ur Specific [place] 1.010, Urine Protein Negative, Urine Glucose (UA) Negative, Urine Ketones Negative, Urine Blood Negative, Urine Nitrate Negative, Urine Bilirubin Negative, Urine Urobilinogen 0.2, Ur Leukocyte Esterase Negative 11/01/18 20:15: Alcohol, Quantitative < 10 11/01/18 20:15: Salicylates < 1 L, Acetaminophen < 10.0 L 11/01/18 20:15: Sodium 143, Potassium 4.1, Chloride 104, Carbon Dioxide 26, Anion Gap 17, BUN 14, Creatinine 1.1, Est GFR ( Amer) > 60, Est GFR (Non- Af Amer) > 60, Random Glucose 91, Calcium 10.3, Magnesium 2.2, Total Bilirubin 0.3, AST 37, ALT 38, Alkaline Phosphatase 108, Total Creatine Kinase 320 H, CK- MB (CK-2) 1.0, CK-MB (CK-2) % Cancelled, Total Protein 8.5 H, Albumin 5.1 H, Globulin 3.4, Albumin/Globulin Ratio 1.5 11/01/18 20:15: WBC 13.6 H, RBC 5.49, Hgb 15.8 D, Hct 46.2, MCV 84.2, MCH 28.8, MCHC 34.2, RDW 13.4, Plt Count 192, MPV 10.8, Gran % 72.6 H, Lymph % (Auto) 21.4 L, [place] % (Auto) 4.6, Eos % (Auto) 1.2 L, Baso % (Auto) 0.2, Gran # 9.86 H, Lymph # (Auto) 2.9, [place] # (Auto) 0.6, Eos # (Auto) 0.2, Baso # (Auto) 0.03 Vital Signs Temp Pulse Resp BP Pulse Ox 11/03/18 07:33 97.6 F 71 18 89/57 L 11/02/18 15:00 97.2 F L 86 17 125/80 11/02/18 06:19 98.5 F 75 20 123/80 11/02/18 05:30 72 18 112/80 98 11/02/18 05:15 98.8 F 72 18 112/80 98 11/01/18 20:00 98.7 F 91 H 18 130/82 97 DSM 5 Symptoms Update: Shortly patient is 33 y/o -[place] male with reported history of schizophrenia, history of polysubstance abuse and dependence, patient has multiple admissions to the psychiatric inpatient unit, patient was brought in to the emergency room after patient was found to be unresponsive in the community after ingesting PCP, in the emergency room patient presented in a catatonic stage, wanting to internal stimuli, patient required further evaluation and stabilization and medication adjustment. Please see emergency room notes for more detailed information. Patient was seen and examined today next to the nursing station, patient presented with improved personal hygiene, patient presented to be calmer, thought process still disorganized, but no agitation or aggression. Patient still does not want his mother to be involved in to his care, patient seems to be ready for discharge tomorrow. Patient was educated about her treatment plan, patient was on 3 antipsychotic medications, this lyric writer explained that at this point there is no need for patient to be on 3 antipsychotic medication and subtherapeutic doses, patient verbalized understanding, patient is willing to have injectable form Invega, p atient's next Invega(156mg) injection: 11/09/18, as per [facility] pt pt is compliant with f/u appt, pt will f/u with them on friday and will have injection. Patient is willing to continue Seroquel. MITCHEL contacted Gabby, Geophysical E Logger at [facility], Intensive Day Treatment Program. "As per Gabby, patient allowed to return back to the program. Patient reported to attend program daily. Gabby reports speaking to pt's mother and discussed having a Family Meeting when pt returns back to the program. Gabby suspects patient has been using drugs, as pt refused having a drug test. SW informed Gabby, patient will be d/ on Friday." As per staff patient is calm, visible in the unit, no agitation or aggression. As per clinical social worker patient was verbalizing thoughts of harming himself 11/03/18, was very tearful, reports that he was cursed, please see clinical social worker notes for more detailed information. Patient denied any thoughts of harming himself or others for past 48 hours So far patient tolerates medications well, no side effects observed or reported, aims 0, no EPS. Impression: Schizophrenia Stimulant use disorder Substance-induced psychosis Medication Change: Yes Medical Record Reviewed: Yes Mental Status Examination - Cognitive Function Orientation: Person, Place, Situation Attention: Poor (some improvements) Concentration: Poor (some improvements) Association: Loose (some improvements) Fund of Knowledge: Poor - Mood Mood: Depressed ("I feel better), Anxious ("I am not anxious") - Affect Affect: Constricted (Was more reactive, mood congruent today) - Speech Speech: Appropriate - Formal Thought Process Formal Thought Process: Paranoia (Mildly guarded but not acutely psychotic), Other (Patient presented much better) - Suicidal Ideation Suicidal Ideation: No - Homicidal Ideation Homicidal Ideation: No Goal/Treatment Plan - Goal/Treatment Plan Need for Continued Stay: Remain at risks for inpatient hospitalization, Severe depression anxiety, Discharge may exacerbated symptoms, Severe functional impairment Progress Toward Problem(s) and Goals/Treatment Plan: Milieu/structure/supportive therapy Medical consult was called for leukocytosis CBC was ordered for the morning time consultation for discharge plan and social issues Med management Patient's pharmacy was contacted [facility] [phone] Paliperidone extended release 6 mg twice a day, was discontinued Seroquel 100 mg twice a day for psychosis, will be continued Depakote 500 mg twice a day for mood stabilization Cogentin 2 mg daily for possible EPS Haloperidol was discontinued, only if needed Invega Sustenna is due is on Friday11/09/18, patient will get the injection in his program Collateral from family, patient refused to give permission to talk to his family Patient submitted 48-hour notice, but rescinded Follow up on labs Will monitor closely Pt was educated about risk/benefits and alternatives of medications, coping stra tegies (safety plan, suicide prevention), relapse prevention, importance of follow up with psychiatrist and therapist, stay away from drugs/alcohol/smoking Estimated Date of D/C: 11/06/18
[2018-11-05 17:05] VITALS: BP 130/78; PULSE 93
[2018-11-06] MEDS: Divalproex 500 mg DR(BID formulation) PO SCH (10:22)
--- NOTE | 2018-11-06 14:10 | PCM.PYCHDC ---
Mental Status Examination - Mental Status Examination Orientation: Person, Place, Situation, Time Memory: Intact Mood: Neutral Affect: Constricted (more reactive, mood congruent) Speech: Appropriate Attention: WNL Concentration: WNL Association: Loose (But with much improvement) Fund of Knowledge: Poor Formal Thought Process: Loosening of associations (seems baseline), Circumstantial (seems baseline) Description of patient's judgement and insight: Pt has improved insight into mental and medical illness, pt was compliant with medications and unit rules and regulations, pt was going to groups, was calm, cooperative, socially appropriate, no behavioral incidents, no agitation, no aggression. Psychotic Thoughts and Behaviors: Pt denied v/a/t hallucinations, denied paranoid ideations, pt does not appear to be psychotic, and thought process is goal directed. Suicidal Ideation: No Current Homicidal Ideation?: No Plan: pt adamantly denied thoughts of harming self or others denied intent or plan. Discharge Summary - Discharge Note Reason for Hospitalization: Patient was admitted to the psychiatric inpatient unit for evaluation of stabilization of psychotic symptoms, patient passed out in the community after ingesting PCP, patient presented in a catatonic stage, responding to internal stimuli. Please see ER notes for more detailed information. Psychiatric History (includes Medical, Family, Personal Hx): See HPI Laboratory Data: Abnormal Lab Results 11/06/18 07:40 Valproic Acid 67 Consultations:: List each consultation separately and include: 1. Reason for request. 2. Findings. 3. Follow-up Consultations: Patient was seen by medical team in the emergency room, no major medical issues. Summary of Hospital Course include:: 1. Description of specific treatment plan utilized for patients during their course of treatmen. 2. Summarize the time- course for resolution of acute symptoms and/or regressed behaviors. 3. Describe issues identified and worked on during hospitalization. 4. Describe medication utilized. 5. Describe medical problems identified and treated. 6. Reassessment of suicide risk Summary of Hospital Course: Shortly patient is 33 y/o -Bul[place] male with reported history of schizophrenia, history of polysubstance abuse and dependence, patient has multiple admissions to the psychiatric inpatient unit, patient was brought in to the emergency room after patient was found to be unresponsive in the community after ingesting PCP, in the emergency room patient presented in a catatonic stage, wanting to internal stimuli, patient required further evaluation and stabilization and medication adjustment. Please see emergency room notes for more detailed information. Please see admission note for more detailed information for full examination and assessment of his mental status. 11/01/18 20:15 11/01/18 20:15 Lab Results 11/01/18 21:26: Urine Opiates Screen Negative, Urine Methadone Screen Negative, Ur Barbiturates Screen Negative, Ur Phencyclidine Scrn Positive H, Ur Amphetamines Screen Negative, U Benzodiazepines Scrn Negative, U Oth Cocaine Metabols Negative, U Cannabinoids Screen Negative 11/01/18 21:26: Urine Color Light yellow, Urine Appearance Clear, Urine pH 6.0, Ur Specific [place] 1.010, Urine Protein Negative, Urine Glucose (UA) Negative, Urine Ketones Negative, Urine Blood Negative, Urine Nitrate Negative, Urine Bilirubin Negative, Urine Urobilinogen 0.2, Ur Leukocyte Esterase Negative 11/01/18 20:15: Alcohol, Quantitative < 10 11/01/18 20:15: Salicylates < 1 L, Acetaminophen < 10.0 L 11/01/18 20:15: Sodium 143, Potassium 4.1, Chloride 104, Carbon Dioxide 26, An ion Gap 17, BUN 14, Creatinine 1.1, Est GFR ( Amer) > 60, Est GFR (Non-Af Amer) > 60, Random Glucose 91, Calcium 10.3, Magnesium 2.2, Total Bilirubin 0.3, AST 37, ALT 38, Alkaline Phosphatase 108, Total Creatine Kinase 320 H, CK-MB (CK-2) 1.0, CK-MB (CK-2) % Cancelled, Total Protein 8.5 H, Albumin 5.1 H, Globulin 3.4, Albumin/Globulin Ratio 1.5 11/01/18 20:15: WBC 13.6 H, RBC 5.49, Hgb 15.8 D, Hct 46.2, MCV 84.2, MCH 28.8, MCHC 34.2, RDW 13.4, Plt Count 192, MPV 10.8, Gran % 72.6 H, Lymph % (Auto) 21.4 L, [place] % (Auto) 4.6, Eos % (Auto) 1.2 L, Baso % (Auto) 0.2, Gran # 9.86 H, Lymph # (Auto) 2.9, [place] # (Auto) 0.6, Eos # (Auto) 0.2, Baso # (Auto) 0.03 Vital Signs Temp Pulse Resp BP Pulse Ox 11/02/18 06:19 98.5 F 75 20 123/80 11/02/18 05:30 72 18 112/80 98 11/02/18 05:15 98.8 F 72 18 112/80 98 11/01/18 20:00 98.7 F 91 H 18 130/82 97 Patient's pharmacy was contacted [facility] [phone] Paliperidone extended release 6 mg twice a day filled in October 22, 2018 Seroquel 100 mg at the nighttime filled in October 19, 2018 Depakote 500 mg twice a day filled in October 19, 2018 Cogentin 2 mg daily filled on October 19, 2018 Haloperidol 5 mg twice a day filled in October 22, 2018 Pharmacy could not find a record for Invega Sustenna, social work msw was kindly asked to call to [facility] to find out last dose of Invega Sustenna given. Based on this medication list patient was on 3 antipsychotic medications This typewriters functional tester discontinued haloperidol InVega extended-release is not formulary in the hospital, more over a plan from the previous admission was to discontinue p.o. form of invega and patient will continue only on injectable form Seroquel was increased to 100 mg twice a day, this typewriters functional tester was not able to discontinue 2 antipsychotic medications during this visit. So far patient needs to continue on Seroquel and Invega Sustenna with a plan to discontinue Seroquel based on the patient's symptoms and presentation. Cogentin 1 mg twice a day for EPS Depakote 500 mg twice a day for mood stabilization Seroquel 100 mg twice a day for psychosis Invega Sustenna is due October 09, 2019, patient will get an injection in [facility] day treatment program. Patient tolerated medications well, no side effects observed or reported, aims 0, no EPS. Patient did not give permission to his mother, that is why this admission patient's mother was not involved. Over the course of this hospitalization pt was attending groups, pt also had medication management, had therapeutic milieu. Overall pt improved significantly, pt's affect became brighter, pt was less depressed, has realistic future oriented plans, psychosis improved, or anxious, pt was socially appropriate, no behavioral issues, pts insight improved, pt deemed to be ready for discharge. At the time of the discharge pt denied been depressed, denied thoughts of harming self or others, denied psychotic symptoms, and pt does not appeared to be psychotic, denied been anxious, pt is not in imminent danger to self or others, pt was referred to day treatment program/dual diagnosis [facility], information about follow up appointment, time and address provided to the pt, it is patient responsibility to follow up with outpatient clinic, PMD as well as specialists (see SW note for more detailed information). In case pt will need to obtain results of studies pending at discharge pt was provided with contact information of Psychiatric Inpatient unit [phone] as well as Medical Record Department [phone]. Naltrexone treatment not indicated at this time. Counseling about smoking and alcohol cessation provided AA meetings as well as smoking cessation treatment program information was provided by the pt was provided with prescriptions for all of medications (please see medication reconciliation form) Pt was educated about safety plan in case of worsening of symptoms or in case of suicidal or homicidal ideation call 911 or go to the nearest ER, also was educated to take meds as prescribed and stay away from drugs, pt verbalized understanding. - Diagnosis (1) Stimulant use disorder Status: Chronic Priority: High (2) Schizophrenia Status: Chronic Priority: High - Final Diagnosis (DSM 5) Condition upon Discharge: IMPROVED Disposition: HOME/ ROUTINE Follow-up Treatment Plan: Over the course of this hospitalization pt was attending groups, pt also had medication management, had therapeutic milieu. Overall pt improved significantly, pt's affect became brighter, pt was less depressed, has realistic future oriented plans, psychosis improved, or anxious, pt was socially appropriate, no behavioral issues, pts insight improved, pt deemed to be ready for discharge. At the time of the discharge pt denied been depressed, denied thoughts of harming self or others, denied psychotic symptoms, and pt does not appeared to be psychotic, denied been anxious, pt is not in imminent danger to self or others, pt was referred to day treatment program/dual diagnosis [facility], information about follow up appointment, time and address provided to the pt, it is patient responsibility to follow up with outpatient clinic, PMD as well as specialists (see SW note for more detailed information). In case pt will need to obtain results of studies pending at discharge pt was provided with contact information of Psychiatric Inpatient unit [phone] as well as Medical Record Department [phone]. Naltrexone treatment not indicated at this time. Counseling about smoking and alcohol cessation provided AA meetings as well as smoking cessation treatment program information was provided by the [facility] pt was provided with prescriptions for all of medications (please see medication reconciliation form) Pt was educated about safety plan in case of worsening of symptoms or in case of suicidal or homicidal ideation call 911 or go to the nearest ER, also was educated to take meds as prescribed and stay away from drugs, pt verbalized understanding. Prescriptions/Medication Reconciliation: Benztropine [Cogentin] 1 mg PO AMHS #30 tab Divalproex [Depakote DR(*BID*)] 500 mg PO AMHS #30 tcp QUEtiapine [Seroquel] 100 mg PO AMHS #30 tab - Smoking Cessation Smoking Cessation Medication prescribed: No Reason for not providing: Patient refused - Antipsychotic Medications Pt discharged on 2 or more routine antipsychotic medications: Yes - Justification for 2 or more meds Failed 3 or more trials of Monotherapy: List medications: Patient was on 3 antipsychotic medications including haloperidol, Seroquel, inVega. This typewriters functional tester discontinued haloperidol, discontinued p.o. intake, at present moment patient should be continued Seroquel and injectable form of Invega. Plan is to wean off Seroquel based on patient presentation
== END 2018-11-06 12:01 | disposition home or self-care (01) | DRG 430 ==
LOC: ED 18:49 → ERH 11-02 05:06 → PSYC 11-02 05:33
PROVIDERS: ADMIT Psychiatry & Neurology Psychiatry; ATTEND Psychiatry & Neurology Psychiatry
DX: F20.9 Schizophrenia, unspecified (principal); F32.9 Major depressive disorder, single episode, unspecified; F15.959 Other stimulant use, unspecified with stimulant-induced psychotic disorder, unspecified; F16.159 Hallucinogen abuse with hallucinogen-induced psychotic disorder, unspecified; D72.829 Elevated white blood cell count, unspecified

== ENCOUNTER 2018-12-08 15:09 | Inpatient (IN) | payer OTHER ==
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
[2018-12-08 15:31] VITALS: BMI 31.1
[2018-12-08 16:07] LABS: ACETAMINOPHEN < 10.0 ug/ml (10.0-20.0); SALICYLATE < 1 mg/dL (2.0-20.0)
[2018-12-08 16:08] LABS: ALB/GLOB RATIO 1.3 (1.1-1.8); ALBUMIN 4.1 g/dL (3.0-4.8); BLOOD UREA NITROGEN 14 mg/dL (7-21); CALCIUM 9.2 mg/dL (8.4-10.5); GFR NON-AFRICAN AMERICAN > 60
[2018-12-08 16:25] LABS: BASO # 0.03 K/mm3 (0.0-2.0); BASO % 0.3 % (0.0-3.0); EOS # 0.4 (0.0-0.7); EOS % 3.8 % (1.5-5.0); HEMOGLOBIN 13.6 g/dL (14.0-18.0); LYMPH # 3.8 (1.2-3.4); MEAN CELL VOLUME 84.3 fl (80.0-105.0); MEAN CORPUSCULAR HEMOGLOBIN 28.4 pg (25.0-35.0); MEAN CORPUSCULAR HGB CONC 33.7 g/dl (31.0-37.0); MEAN PLATELET VOLUME 11.6 fl (7.0-11.0); MONO # 0.6 (0.1-0.6); RBC 4.79 10^6/uL (3.5-6.1); RED CELL DISTRIBUTION WIDTH 14.1 % (11.5-14.5); WHITE BLOOD COUNT 11.3 10^3/uL (4.5-11.0)
[2018-12-08 16:41] LABS: ALT/SGPT 19 U/L (7-56); AST/SGOT 26 U/L (17-59)
--- NOTE | 2018-12-08 16:43 | RAD ---
Date of service: 12/08/2018 HISTORY: psych COMPARISON: 11/01/2018 FINDINGS: LUNGS: No active pulmonary disease. PLEURA: No significant pleural effusion identified, no pneumothorax apparent. CARDIOVASCULAR: No aortic atherosclerotic calcification present. Normal cardiac size. No pulmonary vascular congestion. OSSEOUS STRUCTURES: No significant abnormalities. VISUALIZED UPPER ABDOMEN: Normal. OTHER FINDINGS: None. IMPRESSION: No active disease.
[2018-12-08 19:25] LABS: URINE BILIRUBIN NEGATIVE (NEGATIVE); URINE BLOOD NEGATIVE (NEGATIVE); URINE GLUCOSE (UA) NEGATIVE (NEGATIVE); URINE LEUKOCYTE ESTERASE NEGATIVE Leu/uL (NEGATIVE); URINE PROTEIN NEGATIVE mg/dL (<30 mg/dL); URINE UROBILINOGEN 0.2 E.U./dL (<1 E.U./dL)
[2018-12-08 19:42] LABS: URINE APPEARANCE CLEAR (CLEAR); URINE COLOR YELLOW (YELLOW)
[2018-12-08 19:49] LABS: BARBITURATES, UR NEGATIVE (NEGATIVE); BENZODIAZEPINES, UR NEGATIVE (NEGATIVE); OPIATES, UR NEGATIVE (NEGATIVE); PHENCYCLIDINE, UR POSITIVE (NEGATIVE)
[2018-12-08] MEDS ORDERED: Alum-Mag Hydrox-Simethicone Susp (30 mL) PO PRN (20:34)
[2018-12-08] MEDS ORDERED: Magnesium Hydroxide Susp 30 ml UD PO PRN (20:34)
[2018-12-08] MEDS ORDERED: DiphenhydrAMINE 50 mg/ml Inj IM PRN (20:59)
[2018-12-08 21:37] VITALS: O2SAT 98
--- NOTE | 2018-12-08 22:05 | PCM.BM ---
<Jj Quintanilla - Last Filed: 12/08/18 22:02> Treatment Plan Problems - Problems identified on initial assessmt Hopelessness/Helplessness Date Initiated: 12/08/18 Time Initiated: 22:03 Assessment reference: NA Status: Active Ineffective Coping Date Initiated: 12/08/18 Time Initiated: 22:03 Assessment reference: NA Status: Active (Medic) Medication nonadherence Date Initiated: 12/08/18 Time Initiated: 22:03 Assessment reference: NA Status: Active Social Isolation Date Initiated: 12/08/18 Time Initiated: 22:03 Assessment reference: NA Status: Active Altered Sleep Patterns Date Initiated: 12/08/18 Time Initiated: 22:04 Assessment reference: NA Status: Active Treatment assets and liabiliti Patient Assests: cooperative, self-reliant, ADL independent, physically healthy, negotiates basic needs, cognitively intact Patient Liabilities: financial problems, poor support system, relationship conflicts, substance abuse - Milieu Protocol Maintain good personal hygiene: daily Encourage regular showers, daily Remind patient to perform daily oral care, daily Assist patient to perform ADL's Maintain personal safety: every shift Educate patient to report safety concerns to staff, every shift Monitor environment for contraband/sharps Medication safety: Monitor for expected outcome, potential side effects: every shift, Assess barriers to learning: every shift, Assess readiness for medication education: every shift Discharge/Continuing Care - Education Needs Education Needs: Patient Medication, Patient Diagnosis/Disease Process, Patient Coping Skills, Patient Community resources, Patient Activities of Daily Living, Patient Health Practices/Safety, Patient Aftercare Safety Plan - Discharge Discharge Criteria: Tolerates medication w/o severe side effects, Free of Suicidal thoughts, Free of Homicidal thoughts, Free of paranoid thoughts, Free of agitation, Normal sleep pattern, Ability to care for self, No longer exhibiting s/s of withdrawal, Reduction of target symptoms <Jessica Fernandez - Last Filed: 12/09/18 08:45> - Diagnosis (1) Polysubstance abuse Status: Chronic Interventions: 12/09/18 08:45 Monitoring withdrawal symptoms Medical detoxification Pharmacotherapy for alcohol/benzos/opioid dependence Maintaining sobriety Relapse prevention Possible rehabilitation Motivational interviewing 12-step programs: AA meetings (2) Schizophrenia Status: Chronic Interventions: 12/09/18 08:45 Psychoeducation/psychotherapy Psychopharmacology/adjustment of medications as needed/ monitoring possible side effects Evaluate pt on daily basis Compliance with medications and follow up appointments Long acting medication if pt is noncompliant with pill form Suicide and homicide risk assessment and prevention, coping strategies, safety plan Relapse prevention Reduction of symptoms Improve functional status Possible assertive community treatment Cognitive behavioral therapy Family involvement Possible social skill training as outpatient <Christiane Amin - Last Filed: 12/09/18 16:06> Family Contact Family involvement: Famliy/SO not involved - Outside Agency [facility] Care involvment: Information-sharing Agency contact name: [facility] Agency contact number: [phone] <Lakisha Simon - Last Filed: 12/09/18 16:08>
[2018-12-09] MEDS ORDERED: DiphenhydrAMINE 50 mg/ml Inj IM SCH
[2018-12-09 07:42] LABS: GLUCOSE,FASTING 95 mg/dL (65-110); HDL CHOLESTEROL 25 mg/dL (29-60)
[2018-12-09 07:55] LABS: LDL CHOLESTEROL 99 mg/dL (0-129)
--- NOTE | 2018-12-09 09:36 | CARD ---
APPROVED REPORT Date of service: 12/08/2018 EKG Measurement Heart [id number] <Conclusion> Normal sinus rhythm Normal ECG
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
[2018-12-10 07:17] VITALS: TEMP 97.2
--- NOTE | 2018-12-10 14:50 | PCM.PYCHPN ---
Psychiatric Progress Note - Psychiatric Progress Note Patient seen today, length of contact: 30 minutes Patient Chief Complaint: "I requested discharge already, I woke up today in good mood, I spoke to myself, I think that I am good to go" Problems Identified/Issues Discussed: Risk/benefits and alternatives of medications discussed, suicide/ homicide prevention, past psychiatric h/o, current psychiatric symptoms, medical problems, risk/benefits and alternatives of medications, medications compliance, coping strategies, substance abuse h/o, relapse prevention, importance of follow up with psychiatrist and therapist, discharge plan. Medical Problems: Please see HPI Diagnostic Results: 12/08/18 15:50 12/08/18 15:50 Lab Results 12/09/18 06:55: RPR Nonreactive 12/09/18 06:55: TSH 3rd Generation 1.14 12/09/18 06:55: Fasting Glucose 95, Triglycerides 178 H, Cholesterol 153, LDL Cholesterol Direct 99, HDL Cholesterol 25 L 12/08/18 19:20: Urine Opiates Screen Negative, Urine Methadone Screen Negative, Ur Barbiturates Screen Negative, Ur Phencyclidine Scrn Positive H, Ur Amphetamin es Screen Negative, U Benzodiazepines Scrn Negative, U Oth Cocaine Metabols Negative, U Cannabinoids Screen Positive H 12/08/18 19:20: Urine Color Yellow, Urine Appearance Clear, Urine pH 7.0, Ur Specific [place] 1.015, Urine Protein Negative, Urine Glucose (UA) Negative, Ur ine Ketones Negative, Urine Blood Negative, Urine Nitrate Negative, Urine Bilirubin Negative, Urine Urobilinogen 0.2, Ur Leukocyte Esterase Negative 12/08/18 15:50: Alcohol, Quantitative < 10 12/08/18 15:50: Salicylates < 1 L, Acetaminophen < 10.0 L 12/08/18 15:50: Sodium 139, Potassium 3.7, Chloride 105, Carbon Dioxide 26, Anion Gap 12, BUN 14, Creatinine 1.0, Est GFR ( Amer) > 60, Est GFR (Non- Af Amer) > 60, Random Glucose 126 H, Calcium 9.2, Total Bilirubin 0.3, AST 26, ALT 19, Alkaline Phosphatase 82, Total Protein 7.2, Albumin 4.1, Globulin 3.1, Albumin/Globulin Ratio 1.3 12/08/18 15:50: WBC 11.3 H, RBC 4.79, Hgb 13.6 L, Hct 40.4 L, MCV 84.3, MCH 28.4, MCHC 33.7, RDW 14.1, Plt Count 196, MPV 11.6 H, Neut % (Auto) 56.9, Lymph % (Auto) 34.0, [place] % (Auto) 5.0, Eos % (Auto) 3.8, Baso % (Auto) 0.3, Lymph # (Auto) 3.8 H, [place] # (Auto) 0.6, Eos # (Auto) 0.4, Baso # (Auto) 0.03, Absolute Neuts (auto) 6.41 Vital Signs Temp Pulse Resp BP Pulse Ox 12/10/18 07:16 97.2 F L 72 20 102/56 L 12/09/18 16:00 84 115/81 12/09/18 07:12 97.5 F L 82 20 118/79 12/08/18 21:36 98.1 F 86 18 132/87 98 12/08/18 20:20 85 18 130/85 100 12/08/18 18:00 98 F 86 18 140/79 98 12/08/18 15:48 98.2 F 90 18 134/76 100 DSM 5 Symptoms Update: Shortly patient is 33 y/o -[place] male with reported history of schizophrenia, history of polysubstance abuse and dependence, patient has multiple admissions to the psychiatric inpatient unit to this facility, pt bro ught himself to the hospital looking for help for his depressive symptoms, possible suicidal ideation with a plan to drown himself, as per emergency room report patient was noncompliant with his medications and patient got his Invega Sustenna shot on December 07, 2018. Patient required further evaluation and stabilization and medication management. Patient is very familiar to this unit from multiple psychiatric admissions in the past, most recent was about a month ago, patient has history of s chizophrenia, polysubstance abuse and dependence, stimulants use disorder. Patient was seen today at the treatment team meeting room with medical student, patient presented with good personal hygiene, more talkative, as per report patient submitted 48-hour notice, patient said that he woke up in good mood, patient has no reasonable explanation why he started to feel better. as per staff pt is calm, cooperative, socially appropriate, no agitation, no aggression. Patient refused to give collateral information from his mother, "I do want to talk to her because I already spoke to her." So far patient tolerates medications well, no side effects observed or reported, aims 0, no EPS. Impression: Schizophrenia spectrum disorder as per history Polysubstance abuse and dependence Medication Change: Yes (Seroquel and Ambien was started yesterday) Medical Record Reviewed: Yes Consults ordered or reviewed: Patient was seen by medical team in the emergency room, does not have any major physical complaints. Mental Status Examination - Cognitive Function Orientation: Person, Place, Situation, Time Memory: Intact Attention: Poor (Some improvement) Concentration: Poor (Some improvement) Association: Loose (Baseline) Fund of Knowledge: Poor - Mood Mood: Depressed (I feel depressed and suicidal) - Affect Affect: Other (Times and appropriate) - Formal Thought Process Formal Thought Process: Other (Patient appeared to be internally preoccupied, responding to internal stimuli) - Suicidal Ideation Suicidal Ideation: No - Homicidal Ideation Homicidal Ideation: No Goal/Treatment Plan - Goal/Treatment Plan Need for Continued Stay: Remain at risks for inpatient hospitalization, Severe depression anxiety, Discharge may exacerbated symptoms, Severe functional impairment Progress Toward Problem(s) and Goals/Treatment Plan: Milieu/structure/supportive therapy SW consultation for discharge plan and social issues Patient submitted 48-hour notice, at present moment patient does not meet the criteria for involuntary commitment, will educate patient to rescind 48-hour notice Med management invega will be continued seroquel 50 mg a.m. and at bedtime resumed will consider antidepressants ambien for insomnia Family involvement collaterals from [facility] program Follow up on labs Will monitor closely Pt was educated about risk/benefits and alternatives of medications, coping strategies (safety plan, suicide prevention), relapse prevention, importance of follow up with psychiatrist and therapist, stay away from drugs/alcohol/smoking Estimated Date of D/C: 12/14/18
[2018-12-11 07:01] VITALS: BP 92/56; PULSE 74; RESP 18
--- NOTE | 2018-12-11 13:25 | PCM.PYCHDC ---
Mental Status Examination - Mental Status Examination Orientation: Person, Place, Situation, Time Memory: Intact Mood: Neutral Affect: Broad (Mood congruent) Speech: Appropriate Attention: Poor (At baseline) Concentration: Poor (baseline) Association: Loose (baseline) Fund of Knowledge: Poor (Baseline) Formal Thought Process: Other ( thought process is mildly disorganized but overall much better.) Description of patient's judgement and insight: Patient has relatively good insight into his illnesses, patient brought himself to the hospital, was compliant with her medications and unit rules and regulations.pt was attending therapy groups, was calm, cooperative, socially appropriate, no behavioral incidents, no agitation, no aggression. Psychotic Thoughts and Behaviors: Pt denied v/a/t hallucinations, denied paranoid ideation, pt does not appear to be psychotic, but mildly disorganized. Patient seems to be at his baseline level of functioning. Suicidal Ideation: No Current Homicidal Ideation?: No Plan: pt adamantly denied thoughts of harming self or others denied intent or plan. Discharge Summary - Discharge Note Reason for Hospitalization: Patient was admitted to the psychiatric inpatient unit for evaluation and stabilization of possible suicidal ideation, depressed mood. Psychiatric History (includes Medical, Family, Personal Hx): See HPI Laboratory Data: 12/08/18 15:50 12/08/18 15:50 Lab Results 12/09/18 06:55: RPR Nonreactive 12/09/18 06:55: TSH 3rd Generation 1.14 12/09/18 06:55: Fasting Glucose 95, Triglycerides 178 H, Cholesterol 153, LDL Cholesterol Direct 99, HDL Cholesterol 25 L 12/08/18 19:20: Urine Opiates Screen Negative, Urine Methadone Screen Negative, Ur Barbiturates Screen Negative, Ur Phencyclidine Scrn Positive H, Ur Amphet amines Screen Negative, U Benzodiazepines Scrn Negative, U Oth Cocaine Metabols Negative, U Cannabinoids Screen Positive H 12/08/18 19:20: Urine Color Yellow, Urine Appearance Clear, Urine pH 7.0, Ur Specific [place] 1.015, Urine Protein Negative, Urine Glucose (UA) Negative, Urine Ketones Negative, Urine Blood Negative, Urine Nitrate Negative, Urine Bilirubin Negative, Urine Urobilinogen 0.2, Ur Leukocyte Esterase Negative 12/08/18 15:50: Alcohol, Quantitative < 10 12/08/18 15:50: Salicylates < 1 L, Acetaminophen < 10.0 L 12/08/18 15:50: Sodium 139, Potassium 3.7, Chloride 105, Carbon Dioxide 26, Anion Gap 12, BUN 14, Creatinine 1.0, Est GFR ( Amer) > 60, Est GFR (Non- Af Amer) > 60, Random Glucose 126 H, Calcium 9.2, Total Bilirubin 0.3, AST 26, ALT 19, Alkaline Phosphatase 82, Total Protein 7.2, Albumin 4.1, Globulin 3.1, Albumin/Globulin Ratio 1.3 12/08/18 15:50: WBC 11.3 H, RBC 4.79, Hgb 13.6 L, Hct 40.4 L, MCV 84.3, MCH 28.4, MCHC 33.7, RDW 14.1, Plt Count 196, MPV 11.6 H, Neut % (Auto) 56.9, Lymph % (Auto) 34.0, [place] % (Auto) 5.0, Eos % (Auto) 3.8, Baso % (Auto) 0.3, Lymph # (Auto) 3.8 H, [place] # (Auto) 0.6, Eos # (Auto) 0.4, Baso # (Auto) 0.03, Absolute Neuts (auto) 6.41 Vital Signs Temp Pulse Resp BP Pulse Ox 12/11/18 07:00 97.2 F L 74 18 92/56 L 12/10/18 16:00 90 122/79 12/10/18 07:16 97.2 F L 72 20 102/56 L 12/09/18 16:00 84 115/81 12/09/18 07:12 97.5 F L 82 20 118/79 12/08/18 21:36 98.1 F 86 18 132/87 98 12/08/18 20:20 85 18 130/85 100 12/08/18 18:00 98 F 86 18 140/79 98 12/08/18 15:48 98.2 F 90 18 134/76 100 Consultations:: List each consultation separately and include: 1. Reason for request. 2. Findings. 3. Follow-up Consultations: Patient was seen by medical team in the emergency room, does not have any major physical complaints. Summary of Hospital Course include:: 1. Description of specific treatment plan utilized for patients during their course of treatmen. 2. Summarize the time- course for resolution of acute symptoms and/or regressed behaviors. 3. Describe issues identified and worked on during hospitalization. 4. Describe medication utilized. 5. Describe medical problems identified and treated. 6. Reassessment of suicide risk Summary of Hospital Course: Shortly patient is 33 y/o -[place] male with reported history of schizophrenia, history of polysubstance abuse and dependence, patient has multiple admissions to the psychiatric inpatient unit to this facility, pt brought himself to the hospital looking for help for his depressive symptoms, possible suicidal ideation with a plan to drown himself, as per emergency room report patient was noncompliant with his medications and patient got his Invega Sustenna shot on December 07, 2018. Patient required further evaluation and stabilization and medication management.Patient is very familiar to this unit from multiple psychiatric admissions in the past, most recent was about a month ago, patient has history of schizophrenia, polysubstance abuse and dependence, stimulants use disorder. Please see admission note for more detailed information. Over the course of this hospitalization this casualty underwriter initiated Seroquel 50 mg twice a day for disorganized thoughts Ambien 5 mg at the nighttime for insomnia As needed medications. Patient tolerated medications well, no side effects observed or reported, aims 0, no EPS. For the past 3 days patient was observed in to the psychiatric inpatient unit, patient was calm, cooperative, socially appropriate. Patient did not have any agitation or aggression. This casualty underwriter asked permission to talk to his mother, patient refused to give consent, complaining that he is the one who is calling her and he does not want this casualty underwriter to speak to her. Patient submitted 48-hour notice yesterday December 10, 2018, patient does not meet the criteria for screening, patient reached maximum effect from this hospitalization and deemed to be ready for discharge. As per social media developer, patient is accepted back to day treatment program at [facility], patient has follow-up appointment on Saturday December 15, 2018. Over the course of this hospitalization pt was attending groups, pt also had medication management, had therapeutic milieu. Overall pt improved significantly, pt's affect became brighter, pt was less depressed, has realistic future oriented plans, thought process seems to be mildly disorganized but it seems patient is at his baseline of functioning, patient did not appear to be anxious, pt was socially appropriate, no behavioral issues, pts insight improved as well and soon pt deemed to be ready for discharge. At the time of the discharge patient pose no imminent danger to self or others, will be following up at at Day treatment program at [facility], information about follow up appointment, time and address provided to the pt, (see note for more detailed information). It is a patient responsibility to follow up with outpatient clinic, PMD as well as specialists. In case patient will need to obtain results of studies pending at discharge, patient was provided with contact information of Psychiatric Inpatient unit [phone] as well as Medical Record Department [phone], as well as [facility] team [phone]. Counseling about smoking and PCP cessation provided AA meetings as well as [facility] smoking cessation treatment program information was provided by the pt was provided with prescriptions (see medication reconciliation form) Pt was educated about safety plan in case of worsening of symptoms or in case of suicidal or homicidal ideation call 911 or go to the nearest ER, also was educated to take meds as prescribed and stay away from drugs, pt verbalized understanding. - Diagnosis (1) Polysubstance abuse Status: Chronic Priority: High (2) Schizophrenia Status: Chronic Priority: High - Final Diagnosis (DSM 5) Condition upon Discharge: GOOD Disposition: HOME/ ROUTINE Follow-up Treatment Plan: At the time of the discharge patient pose no imminent danger to self or others, will be following up at at Day treatment program at [facility], information about follow up appointment, time and address provided to the pt, (see note for more detailed information). It is a patient responsibility to follow up with outpatient clinic, PMD as well as specialists. Prescriptions/Medication Reconciliation: Quetiapine Fumarate [Seroquel] 50 mg PO AMHS #30 tablet RX: Zolpidem [Ambien] 5 mg PO HS PRN #7 tab PRN Reason: Insomnia - Smoking Cessation Smoking Cessation Medication prescribed: No Reason for not providing: Patient refused - Antipsychotic Medications Pt discharged on 2 or more routine antipsychotic medications: Yes - Justification for 2 or more meds Failed 3 or more trials of Monotherapy: List medications: Patient is on Invega Sustenna, pt was d/c on Seroquel with the plan to d/c as outpatient.
== END 2018-12-11 12:36 | disposition home or self-care (01) | DRG 430 ==
LOC: ED 15:09 → ERH 19:44 → PSYC 20:29
PROVIDERS: ADMIT Psychiatry & Neurology Psychiatry; ATTEND Psychiatry & Neurology Psychiatry
DX: F20.9 Schizophrenia, unspecified (principal); F15.90 Other stimulant use, unspecified, uncomplicated; F32.9 Major depressive disorder, single episode, unspecified; F41.9 Anxiety disorder, unspecified; R45.851 Suicidal ideations; Z91.14 Patient's other noncompliance with medication regimen